=== PATIENT | male | born 1950 | race Caucasian/White ===

== ENCOUNTER 2018-02-08 08:10 | Emergency (ER) | payer MEDICARE ==
[2018-02-08 08:25] VITALS: BP 147/99
--- NOTE | 2018-02-08 08:43 | UC ---
Lower Extremity/Ankle HPI - HPI Summary HPI Summary: PATIENT PRESENTS WITH 3 DAYS OF BRUISING AND A PALPABLE MASS IN HIS RIGHT CALF. NOTICED IT WHEN HE WAS STEPPING OUT OF THE SHOWER. HE DENIES ANY TRAUMA TO THE AREA THAT HE CAN REMEMBER. NO PAIN WITH AMBULATION OR WEIGHTBEARING. ONLY TENDER WITH PALPATION. NO PERSONAL OR FAMILY HISTORY OF BLEEDING OR CLOTTING DISORDERS. NO HISTORY OF DVT. HE DENIES SHORTNESS OF BREATH, CHEST PAIN, NAUSEA. - History of Current Complaint Chief Complaint: UCLowerExtremity Stated Complaint: RIGHT LEG SKIN COMPLAINT Time Seen by Provider: 02/08/18 08:26 Hx Obtained From: Patient Onset/Duration: Lasting Days, Still Present Severity Initially: Moderate Severity Currently: Moderate Pain Intensity: 0 Pain Scale Used: 0-10 Numeric Aggravating Factor(s): Other - TOUCH Alleviating Factor(s): Nothing Able to Bear Weight: Yes - Allergies/Home Medications Allergies/Adverse Reactions: Allergies Allergy/AdvReac Type Severity Reaction Status Date / Time atorvastatin [From Lipitor] Allergy Joint Pain Verified 02/08/18 08:21 PMH/Surg Hx/FS Hx/Imm Hx GI/ History: Gastroesophageal Reflux - Surgical History Surgical History: Yes Surgery Procedure, Year, and Place: HERNIA REPAIR, POLOP REMOVED FROM [facility] - Family History Known Family History: Positive: Other - AVM (daughter) Negative: Hypertension, Blood Disorder - Social History Alcohol Use: Rare Substance Use Type: None Smoking Status (MU): Never Smoked Tobacco Review of Systems Constitutional: Negative Skin: Bruising Respiratory: Negative Cardiovascular: Negative Gastrointestinal: Negative Musculoskeletal: Calf Tenderness - tender nodule right calf All Other Systems Reviewed And Are Negative: Yes Physical Exam Triage Information Reviewed: Yes Appearance: No Pain Distress, Well-Nourished Vital Signs: Initial Vital Signs Temp 98.3 F 02/08/18 08:22 Pulse 54 02/08/18 08:22 Resp 15 02/08/18 08:22 BP 147/99 02/08/18 08:22 Pulse Ox 97 02/08/18 08:22 Vital Signs Reviewed: Yes Eyes: Positive: Conjunctiva Clear ENT: Positive: Hearing grossly normal Neck: Positive: Supple Respiratory: Positive: No respiratory distress, No accessory muscle use Cardiovascular: Positive: Pulses Normal Abdomen Description: Positive: Soft Musculoskeletal: Positive: ROM Intact, No Edema Neurological: Positive: Alert Psychological: Positive: Age Appropriate Behavior Skin: Positive: Other - BRUISING RIGHT CALF OVERLYING TENDER PALPABLE NODULE. NEG HOMANS. Diagnostics - Radiology RLE US Xray Interpretation: Positive (See Comments) - Small amount of fluid within the medial calf. No DVT Radiology Interpretation Completed By: Radiologist Lower Extremity Course/Dx - Differential Dx/Diagnosis Provider Diagnoses: FLUID CYST RIGHT CALF Discharge - Sign-Out/Discharge Documenting (check all that apply): Discharge/Admit/Transfer - Discharge Plan Condition: Stable Disposition: HOME Patient Education Materials: Soft Tissue Mass (ED) Referrals: Addison Pink MD [Primary Care Provider] - (KEEP YOUR APPT NEXT WEEK) Additional Instructions: ULTRASOUND TODAY SHOWED A SMALL FLUID COLLECTION IN YOUR RIGHT CALF. NO DVT. KEEP YOUR FOLLOW-UP APPOINTMENT WITH YOUR PCP NEXT WEEK. IN THE MEANTIME NO ACUTE INTERVENTION INDICATED. THE BRUISING AND FLUID COLLECTION WILL LIKELY RESOLVE ON THEIR OWN. GO TO ER WITHOUT FAIL IF YOU DEVELOP WORSENING PAIN, SHORTNESS OF BREATH, CHEST PAIN, NAUSEA, SWEATS, DIZZINESS OR ANY OTHER CONCERNING SYMPTOMS. - Billing Disposition and Condition Condition: STABLE Disposition: Home
--- NOTE | 2018-02-08 09:14 | RAD ---
INDICATION: Calf tenderness, palpable nodule. COMPARISON: There are no prior studies available for comparison. TECHNIQUE: Multiple real-time, color flow and Doppler tracings of the right lower extremity were obtained. FINDINGS: The common femoral, femoral, profunda femoral and popliteal veins all demonstrate normal compressibility, augmentation with compression and phasic response with respiration. The posterior tibial and peroneal veins demonstrate normal compressibility and augmentation with compression. There is a small amount of fluid within the medial calf in the region of the patient's bruise. IMPRESSION: NO EVIDENCE FOR DEEP VENOUS THROMBOSIS.
== END 2018-02-08 09:34 | disposition home or self-care (01) ==
LOC: UCCORT 08:10
DX: L72.8 Other follicular cysts of the skin and subcutaneous tissue (principal); Z12.5 Encounter for screening for malignant neoplasm of prostate; Z13.220 Encounter for screening for lipoid disorders
CPT/HCPCS: 99211; G0463

== ENCOUNTER 2019-03-24 09:28 | Emergency (ER) | payer MEDICARE ==
--- OUTSIDE RECORDS SUMMARY | 2019-03-24 09:41 | XMS REPORT | Continuity of Care Document ---
:1950 External Reference #:[id number] Author Name dAdison Pink M.D. Address [address] [facility] [address] [place] [address] Care Team Providers Name Role Phone HCP/LW on file Primary Care Physician Unavailable Payers Date Identification Numbers Payment Provider Subscriber Effective: Policy Number: [id number] [facility]a Robison 2017 PayID: [id number] [address] [place] [address] Effective: 2017 Policy Number: [facility] Dariana Robison [id number] PayID: [id number] [address] [place] [address] Problems Active Problems Provider Date Esophagitis Addison Pink M.D. Onset: 12/28/2010 Primary cardiomyopathy Addison Pink M.D. Onset: 12/28/2010 Resolved Problems Benign essential hypertension Addison Pink M.D. Onset: 12/28/2010 Resolved: 10/17/2013 Family History Date Family Member(s) Observation Comments General Cancer Bone sister General Stroke sister at age 61; in setting of cancer/myeloma General Sister 01/15/17 at age 62 of multiple myeloma : Mother due to had arterial perforation (11/2018) (age Complication of procedure during the procedure 89 Years) for Watchman Device First Son Cal Robsion Born 04/10/78 Onset: (age 23 First Daughter Stroke from [place] in [place]; had Years) recurrent CVA from this lesion leaving her w/ hemiparesis in 2010 First Daughter Chayo Robison Born 03/10/80 - Stroke - (age 23 years) from an Avm in [place]. Number of Siblings 1 brother and 5 sisters Social History Type Date Description Comments Sex Unknown Education Highest Level Of Education Completed Is College Level Smoke-Free Home is smoke-free Work Status 12/03/2013 Retired from position as carpenter maintenance Hand Dominance 02/24/2019 Right-handed Tobacco Use Reviewed: Never Smoked Cigarettes 02/20/18 Smoking Status Reviewed: Never Smoked Cigarettes 02/20/18 ETOH Use Rarely consumes alcohol Sun Exposure minimum amount of sun exposure Sun Exposure Uses sunscreen Seat Belt/Car Seat always uses seat belt Currently Active Patient is currently sexually active Age 1st [place] 19 Years Old Additional Info Sexual Partners The patient has had over 5 sexual partners. Allergies, Adverse Reactions, Alerts Active Allergies Reaction Severity Comments Date Lipitor Myositis 09/10/2005 Medications Active Medications SIG Qnty Indications Ordering Provider Date Amlodipine Besylate take 1 tablet 90tabs I73.00 Addison Pink, 2018 5mg daily for pain M.D. Tablets in feet (Raynaud's syndrome) M79.672 I73.00 B Complex 1 daily (for leg R25.2 Addison Pink, 02/20/2018 Capsules cramps); stop after M.D. 2 months if not helpful (for leg cramps) Omeprazole take 1 capsule once 90caps K20.8 Addison Pink, 12/18/2011 20mg Capsules daily for acid M.D. DR reflux History Medications Amlodipine take 1 tablet 90tabs M79.671 Addison Pink, 12/17/2018 - Besylate daily for pain in M.D. 02/23/2019 5mg feet (Raynaud's Tablets syndrome) M79.672 I73.00 Shingrix administer 2 doses 2units Z23 Joesph, 02/20/2018 - 50mcg as directed, per Mike Jaime 08/19/2018 Suspension Rec cdc guidelines Aspirin Adult Low 1 by mouth every Unknown 02/18/2017 - Dose day 02/24/2019 81mg Tablets Doxycycline 1 tab by mouth 28tabs S20.461A Sahra Yeager, 06/22/2016 - Monohydrate twice a day x14 PA 07/06/2016 100mg days Tablets Multivitamin Adult 1 by mouth every Unknown 06/21/2016 - day 02/18/2017 Tablets Tennis Elbow Brace use as directed 1units 726.32 Joesph, 10/17/2013 - Mike Jaime 11/29/2014 For R Arm Azithromycin Unknown 10/11/2011 - 250mg 10/16/2011 Tablets Omeprazole 1 po qd for acid 90caps 530.19 Unknown 09/29/2010 - 20mg reflux 10/16/[address] Tellez OTC 1 po once daily 786.50 Unknown 02/17/2010 - 20mg 09/29/[address] Fu 1 po qd 272.0 Unknown 09/29/2009 - 1000mg 09/29/2010 Lisinopril 1 po qd for high 401.1 Mauser, 09/28/2009 - 20mg blood pressure MD William 09/30/2010 Tablets Simvastatin 1 po qd for high 272.8 Mauser, 09/28/2009 - 5mg cholesterol MD William 09/30/2010 Tablets Zetia 1 PO qd 272.0 Unknown 01/10/2006 - 10mg Tablets 10/12/2008 Niaspan 1 PO qd 272.0 Unknown 01/10/2006 - 500mg 09/29/2009 Tablets Lipitor 1 po qd at supper 0tabs Unknown 10/31/2004 - 20mg for cholesterol 09/10/2005 Tablets Asp 1 tab qd to 0caps Unknown 10/31/2004 - 81mg Capsules prevent a stroke 12/07/2015 Multivitamin (OTC) 1 po qd Unknown 10/31/2004 - 12/07/2015 HCTZ 1 po qd for high 90caps 401.1 Joesph, 10/31/2004 - 12.5mg blood pressure Mike Jaime 10/16/2011 Capsules Medrol Dose [place] use as directed 1Pack 476.0 Joesph, 07/27/2004 - 4mg Mike Jaime 08/10/2004 Tablets Altace 1 po qd for blood 90caps 401.1 Joesph, 04/21/2004 - 10mg pressure Mike Jaime 09/29/2009 Capsules Altace 1 po qd 0caps Unknown - 5mg Capsules 04/21/2004 Medications Administered in Office Medication SIG Qnty Indications Ordering Provider Date H1N1 Swine Flu Vaccine Addison Pink M.D. 09/29/2009 Injection Immunizations CPT Code Status Date Vaccine Lot # [id number] Given 02/24/2019 Pneumococcal Immunization [id number] 47775 Given 06/18/2018 Influenza Vaccine, Inactivated, Subunit, Adjuvanted, For [place] [facility] [place] [place] [address] Given 12/03/2017 Prevnar 13 [id number] U-Flu Given 05/24/2017 Influenza,Unspecified 47309 Given 06/22/2016 Td Immunization [id number] 57102 Given 05/10/2016 Flu, Split Virus 3Yrs 18529 Given 06/23/2014 Flu, Split Virus 3Yrs 71684 Given 05/16/2013 Flu, Split Virus 3Yrs [id number] 12899 Given 05/02/2012 Flu, Split Virus 3Yrs 76146 Given 02/26/2012 Zostavax [id number] 14197 Given 01/30/2006 Adacel or Boostrix, TDaP [id number] 30009 Given 05/11/2004 Flu, Split Virus 3Yrs 73979 Given 05/07/2003 Flu, Split Virus 3Yrs Vital Signs Date Vital Result Comment 02/24/2019 2:40pm BP Systolic 128 mmHg BP Diastolic 80 mmHg Heart Rate 56 /min reg Respiratory Rate 12 /min not laboured Weight 224.00 lb 11/04/2018 4:58pm BP Systolic 130 mmHg BP Diastolic 80 mmHg Height 71.50 inches 5'11.50" w/shoes Weight 229.00 lb w/shoes BMI (Body Mass Index) 31.5 kg/m2 02/20/2018 2:00pm BP Systolic 120 mmHg BP Diastolic 82 mmHg Height 70 inches 5'10" Weight 226.00 lb BMI (Body Mass Index) 32.4 kg/m2 12/03/2017 1:17pm BP Systolic 136 mmHg BP Diastolic 86 mmHg Heart Rate 60 /min Height 71.50 inches 5'11.50" Weight 232.00 lb BMI (Body Mass Index) 31.9 kg/m2 02/19/2017 2:49pm BP Systolic 124 mmHg BP Diastolic 70 mmHg Heart Rate 54 /min reg Respiratory Rate 12 /min not laboured Height 71 inches 5'11" Weight 235.00 lb BMI (Body Mass Index) 32.8 kg/m2 06/22/2016 4:43pm BP Systolic 134 mmHg BP Diastolic 86 mmHg Body Temperature 97.9 F Height 71 inches 5'11" w/shoes Weight 228.00 lb w/shoes BMI (Body Mass Index) 31.8 kg/m2 12/08/2015 2:46pm BP Systolic 122 mmHg BP Diastolic 82 mmHg Heart Rate 54 /min reg Respiratory Rate 12 /min not laboured Weight 222.00 lb 11/30/2014 2:32pm BP Systolic 140 mmHg BP Diastolic 86 mmHg Heart Rate 56 /min reg Respiratory Rate 12 /min not laboured Height 70 inches 5'10" Weight 227.00 lb BMI (Body Mass Index) 32.6 kg/m2 10/17/2013 4:04pm BP Systolic 110 mmHg BP Diastolic 78 mmHg Heart Rate 58 /min reg Respiratory Rate 12 /min not laboured Height 70.25 inches 5'10.25" Weight 222.00 lb BMI (Body Mass Index) 31.6 kg/m2 10/16/2012 3:25pm BP Systolic 120 mmHg BP Diastolic 82 mmHg Heart Rate 58 /min reg Respiratory Rate 12 /min not laboured Height 71 inches 5'11" Weight 215.00 lb BMI (Body Mass Index) 30.0 kg/m2 05/03/2012 10:14am BP Systolic 128 mmHg BP Diastolic 80 mmHg Height 71 inches 5'11" Weight 208.00 lb w/shoes BMI (Body Mass Index) 29.0 kg/m2 10/16/2011 3:22pm BP Systolic 120 mmHg BP Diastolic 70 mmHg Heart Rate 54 /min reg Respiratory Rate 12 /min not laboured Height 71 inches 5'11" Weight 213.00 lb BMI (Body Mass Index) 29.7 kg/m2 12/28/2010 4:44pm BP Systolic 112 mmHg BP Diastolic 80 mmHg Weight 218.00 lb Last Menstrual Period 0 09/30/2010 3:49pm BP Systolic 112 mmHg BP Diastolic 76 mmHg Height 71.50 inches 5'11.50" Weight 219.00 lb BMI (Body Mass Index) 30.1 kg/m2 02/18/2010 5:06pm BP Systolic 112 mmHg BP Diastolic 66 mmHg Weight 221.00 lb 09/29/2009 2:06pm BP Systolic 112 mmHg BP Diastolic 70 mmHg Height 70.5 inches 5'10.50" Weight 213.00 lb w/out shoes BMI (Body Mass Index) 30.1 kg/m2 01/23/2007 11:50am BP Systolic 130 mmHg BP Diastolic 76 mmHg Body Temperature 98.0 F Height 71 inches 5'11" Weight 217.00 lb with steel boots BMI (Body Mass Index) 30.3 kg/m2 01/30/2006 9:00am BP Systolic 128 mmHg BP Diastolic 80 mmHg Height 71 inches 5'11" Weight 219.00 lb BMI (Body Mass Index) 30.5 kg/m2 10/31/2004 1:54pm BP Systolic 120 mmHg BP Diastolic 84 mmHg BP Systolic Recheck 132 mmHg R arm sitting BP Diastolic Recheck 90 mmHg R arm sitting Heart Rate 56 /min reg Height 71 inches 5'11" Weight 216.00 lb BMI (Body Mass Index) 30.1 kg/m2 07/27/2004 1:04pm BP Systolic 130 mmHg BP Diastolic 80 mmHg Body Temperature 98.1 F Height 71 inches 5'11" Weight 221.00 lb BMI (Body Mass Index) 30.8 kg/m2 11/02/2003 1:52pm BP Systolic 130 mmHg R Arm BP Diastolic 90 mmHg R Arm BP Systolic Recheck 146 mmHg R arm sitting BP Diastolic Recheck 90 mmHg R arm sitting Heart Rate 52 /min reg Respiratory Rate 16 /min Height 71 inches 5'11" Weight 220.00 lb BMI (Body Mass Index) 30.7 kg/m2 Results Test Date Facility Test Result H/L Range Note Laboratory test 02/14/2019 [facility] PSA Screening 1.693 ng/ mL N 0-4.000 1 finding [address] [place] [address] [phone] Laboratory test 02/14/2019 [facility] Vitamin B12 423 pg/mL N 180-914 2 finding [address] [place], [place] [id number] [phone] Magnesium 2.0 mg/dL N 1.9-2.7 Lipid Profile 02/14/2019 [facility] Triglycerides 57 mg/dL 3 (Trig/Chol/HDL) [address] [place] [address] [phone] Cholesterol 179 mg/dL 4 HDL Cholesterol 50.9 mg/dL 5 LDL Cholesterol 117 mg/dL 6 Laboratory test 06/04/2018 [facility] Surgical Pathology SEE RESULT 7, 8 finding [phone] BELOW Laboratory test 06/04/2018 [facility] Clotest SEE RESULT 9, 10 finding [phone] BELOW Laboratory test 02/08/2018 [facility] PSA Screening 2.293 ng/mL N 0- 4.0 11 finding [phone] Lipid Profile 02/08/2018 [facility] Triglycerides 88 mg/dL 12 (Trig/Chol/HDL) [phone] Cholesterol 187 mg/dL 13 HDL Cholesterol 45.2 mg/dL 14 LDL Cholesterol 124 mg/dL 15 Laboratory test 01/03/2017 [facility] PSA Screening 1.496 ng/mL N 0- 4.000 16 finding [phone] CBC Auto Diff 01/13/2016 [facility] White Blood 5.0 10^3/uL N 3.5- 10.8 [phone] Count Red Blood Count 5.23 10^6/uL N 4.0-5.4 Hemoglobin 15.5 g/dL N 14.0-18.0 Hematocrit 46 % N 42-52 Mean Corpuscular Volume 89 fL N 80-94 Mean Corpuscular Hemoglobin 30 pg N 27-31 Mean Corpuscular HGB Conc 33 g/dL N 31-36 Red Cell Distribution Width 14 % N 10.5-15 Platelet Count 255 10^3/uL N 150-450 Mean Platelet Volume 7 um3 Low 7.4-10.4 Abs Neutrophils 3.2 10^3/uL N 1.5-7.7 Abs Lymphocytes 1.2 10^3/uL N 1.0-4.8 Abs Monocytes 0.4 10^3/uL N 0-0.8 Abs Eosinophils 0.1 10^3/uL N 0-0.6 Abs Basophils 0 10^3/uL N 0-0.2 Abs Nucleated RBC 0 10^3/uL N Granulocyte % 64.7 % N 38-83 Lymphocyte % 24.4 % Low 25-47 Monocyte % 7.7 % N 1-9 Eosinophil % 2.4 % N 0-6 Basophil % 0.8 % N 0-2 Nucleated Red Blood Cells % 0.1 N Inr/Protime 01/13/2016 [facility] Inr 0.97 N 0.89-1.11 [phone] Laboratory test 01/13/2016 [facility] Partial 33.4 seconds N 26.0- 36.3 finding [phone] Thrombo Time PTT Comp Metabolic 01/13/2016 [facility] Sodium 138 mmol/L N 133-145 Panel [phone] Potassium 4.1 mmol/L N 3.5-5.0 Chloride 107 mmol/L N 101-111 Co2 Carbon Dioxide 26 mmol/L N 22-32 Anion Gap 5 mmol/L N 2-11 Glucose 87 mg/dL N 70-100 Blood Urea Nitrogen 16 mg/dL N 6-24 Creatinine 1.09 mg/dL N 0.67-1.17 BUN/Creatinine Ratio 14.7 N 8-20 Calcium 9.3 mg/dL N 8.6-10.3 Total Protein 7.0 g/dL N 6.4-8.9 Albumin 4.2 g/dL N 3.2-5.2 Globulin 2.8 g/dL N 2-4 Albumin/Globulin Ratio 1.5 N 1-3 Total Bilirubin 0.40 mg/dL N 0.2-1.0 Alkaline Phosphatase 62 U/L N 34-104 Alt 18 U/L N 7-52 Ast 21 U/L N 13-39 Egfr Non- 68.3 N >60 Egfr 87.9 N >60 17 Lipid Profile (Trig/Chol/HDL) 12/03/2015 [facility] Triglycerides 62 mg /dL N 18 [phone] Cholesterol 192 mg/dL N 19 HDL Cholesterol 46.5 mg/dL N 20 LDL Cholesterol 133 mg/dL N 21 Laboratory test finding 12/03/2015 [facility] Glucose 97 mg/dL N 70- 100 22 [phone] PSA Screening 1.806 ng/mL N 0-4.000 23 Laboratory test 01/05/2015 [facility] Troponin-I (TnI) 0.00 ng/mL N < 0.03 24 finding [phone] Laboratory test 01/05/2015 [facility] B Type Natriuretic 16 pg/mL N 25 finding [phone] Peptide CKMB 01/05/2015 [facility] CKMB ng/mL 4.3 ng/mL N 0.6-6.3 [phone] Laboratory test 01/05/2015 [facility] Creatine Kinase 118 U/L N 10- 223 finding [phone] Troponin-I (TnI) 0.00 ng/mL N <0.03 26 Comp Metabolic Panel 01/05/2015 [facility] Sodium 139 mmol/L N 133- 145 [phone] Potassium 4.1 mmol/L N 3.5-5.0 Chloride 106 mmol/L N 101-111 Co2 Carbon Dioxide 29 mmol/L N 22-32 Anion Gap 4 mmol/L N 2-11 Glucose 93 mg/dL N 70-100 Blood Urea Nitrogen 15 mg/dL N 6-24 Creatinine 1.01 mg/dL N 0.67-1.17 BUN/Creatinine Ratio 14.9 N 8-20 Calcium 9.1 mg/dL N 8.6-10.3 Total Protein 7.0 g/dL N 6.4-8.9 Albumin 4.2 g/dL N 3.2-5.2 Globulin 2.8 g/dL N 2-4 Albumin/Globulin Ratio 1.5 N 1-3 Total Bilirubin 0.60 mg/dL N 0.2-1.0 Alkaline Phosphatase 58 U/L N 34-104 Alt 19 U/L N 7-52 Ast 19 U/L N 13-39 Egfr Non- 74.9 N >60 Egfr 96.3 N >60 27 Laboratory test 01/05/2015 [facility] Partial 35.1 seconds N 26.0- 36.3 finding [phone] Thrombo Time PTT Inr/Protime 01/05/2015 [facility] Inr 0.95 N 0.78-1.07 [phone] CBC Auto Diff 01/05/2015 [facility] White Blood 4.9 10^3/uL N 4.8- 10.8 [phone] Count Red Blood Count 4.96 10^6/uL N 4.0-5.4 Hemoglobin 15.3 g/dL N 14.0-18.0 Hematocrit 44 % N 42-52 Mean Corpuscular Volume 88 fL N 80-94 Mean Corpuscular Hemoglobin 31 pg N 27-31 Mean Corpuscular HGB Conc 35 g/dL N 31-36 Red Cell Distribution Width 14 % N 10.5-15 Platelet Count 249 10^3/uL N 150-450 Mean Platelet Volume 7 um3 Low 7.4-10.4 Abs Neutrophils 3.1 10^3/uL N 1.5-7.7 Abs Lymphocytes 1.1 10^3/uL N 1.0-4.8 Abs Monocytes 0.5 10^3/uL N 0-0.8 Abs Eosinophils 0.1 10^3/uL N 0-0.6 Abs Basophils 0 10^3/uL N 0-0.2 Abs Nucleated RBC 0 10^3/uL N Granulocyte % 63.5 % N 38-83 Lymphocyte % 23.2 % Low 25-47 Monocyte % 10.2 % High 1-9 Eosinophil % 2.4 % N 0-6 Basophil % 0.7 % N 0-2 Nucleated Red Blood Cells % 0 N Laboratory test 11/23/2014 [facility] PSA Screening 1.713 ng/mL N 0- 4.000 28 finding [phone] Urine Micro Inhouse 10/17/2013 In House Ua WBC - Ua RBC - Ua Casts - Ua Epi - Ua Other sediment Ua Glucose - Ua Bilirubin - Ua Ketones - Ua Specific [place] 1.020 Ua Blood - Ua PH 6.0 Ua Protein tr Ua Urobilinogen - Ua Nitrite - Ua Leukocytes - Laboratory test 10/09/2013 [facility] PSA Screening 1.409 ng/mL 0- 4.000 29 finding [phone] Lipid Profile 10/09/2013 [facility] Triglycerides 74 mg/dL 30 (Trig/Chol/HDL) [phone] Cholesterol 172 mg/dL 31 HDL Cholesterol 50.6 mg/dL 32 LDL Cholesterol 107 mg/dL 33 Laboratory test 10/07/2012 [facility] PSA Screening 1.9 ng/mL 0-4.0 34 finding [phone] CBC Auto Diff 04/29/2012 [facility] White Blood Count 5.1 CUMM 4.8- 10.8 [phone] Red Cell Count 4.85 CUMM 4.6-6.2 Hemoglobin 15.1 g/dL 14.0-18.0 Hematocrit 44 % 42-52 Mean Corpuscular Volume 90 um3 80-94 Mean Corpuscular Hemoglob 31 pg 27-31 Mean Corpuscular HGB Cone 35 g/dL 32-36 Redcell Distribution WDTH 14 % 10.5-15 Platelet Count 251 CUMM 150-450 Mean Platelet Volume 7.2 um3 Low 7.4-10.4 Gran % 71.7 % 38-83 Lymph % 18.3 % Low 20-45 Mononuclear % 8.1 % 1-9 Eosinophil % 0.8 % 0-6 Basophil % 1.1 % 0-2 Abs Lymphs 0.9 Low 1.0-4.8 Abs Mononuclear 0.4 0-0.8 Absolute Neutrophil Count 3.7 1.5-7.7 Abs Eosinophils 0 0-0.6 Abs Basophils 0.1 0-0.2 Comp Metabolic Panel 04/29/2012 [facility] Sodium 139 mmol/L 135- 145 [phone] Potassium 4.1 mmol/L 3.5-5.0 Chloride 105 mmol/L 101-111 Co2 (Carbon Dioxide) 27.0 mmol/L 22-32 Anion Gap 7.0 mmol/L 2-11 35 Glucose 108 mg/dL High 70-100 BUN 13 mg/dL 6-24 Creatinine 1.0 mg/dL 0.50-1.40 One Over Creatinine 1.00 BUN/Creatinine Ratio 13.0 8-20 Calcium 9.5 mg/dL 8.1-9.9 Total Protein 6.7 GM/DL 6.2-8.1 Albumin 4.4 GM/DL 3.2-5.2 Globulin 2.3 GM/DL 2-4 Albumin/Globulin Ratio 1.9 1-3 Bilirubin Total 1.1 mg/dL 0.4-1.5 36 Alkaline Phosphatase 50 U/L 39-117 Alt (SGPT) 18 U/L 17-63 Ast (Sgot) 23 U/L 12-42 eGFR Non- 76.2 > 60 eGFR 98.0 > 60 37 Laboratory test finding 04/29/2012 [facility] Troponin-I 0 NG/ML 0- 0.06 38 [phone] CPK (Creatine Kinase) 127 U/L 0-200 CKMB 04/29/2012 [facility] CKMB In NG/ML 3.0 NG/ML 0.3-4.0 [phone] % CKMB 2 %MB 0-9 39 Laboratory test finding 10/16/2011 In House Hemoglobin A1c 5.7 Laboratory test finding 10/11/2011 [facility] Alt (SGPT) 40 U/L 17- 63 [phone] Lipid Profile 10/11/2011 [facility] Triglyceride 71 mg/dL 40-200 (Trig/Chol/HDL) [phone] Cholesterol 164 mg/dL Less Than 200 40 High Density Lipoprotein 31 mg/dL Low 40-60 41 Cholesterol/HDL Ratio 5.29 AVERAGE High 1-4.97 Low Density Lipoprotein 119 mg/dL High Less Than 100 42 Basic Metabolic Panel 10/11/2011 [facility] Sodium 140 mmol/L 135- 145 [phone] Potassium 4.5 mmol/L 3.5-5.0 Chloride 100 mmol/L Low 101-111 Co2 (Carbon Dioxide) 33.0 mmol/L High 22-32 Anion Gap 7.0 mmol/L 2-11 43 Glucose 103 mg/dL High 70-100 BUN 9 mg/dL 6-24 Creatinine 0.9 mg/dL 0.50-1.40 One Over Creatinine 1.11 BUN/Creatinine Ratio 10.0 8-20 Calcium 9.3 mg/dL 8.1-9.9 eGFR Non- 86.4 > 60 eGFR 111.1 > 60 44 Laboratory test finding 10/11/2011 [facility] PSA 2.13 NG/ML 0-4 45 [phone] Laboratory test finding 12/20/2010 [facility] Alt (SGPT) 23 U/L 17- 63 [phone] Lipid Profile 12/20/2010 [facility] Triglyceride 111 mg/dL 40-200 (Trig/Chol/HDL) [phone] Cholesterol 197 mg/dL Less Than 200 46 High Density Lipoprotein 50 mg/dL 40-60 47 Cholesterol/HDL Ratio 3.94 AVERAGE 1-4.97 Low Density Lipoprotein 125 mg/dL High Less Than 100 48 Basic Metabolic Panel 12/20/2010 [facility] Sodium 140 mmol/L 135- 145 [phone] Potassium 3.9 mmol/L 3.5-5.0 Chloride 105 mmol/L 101-111 Co2 (Carbon Dioxide) 30.0 mmol/L 22-32 Anion Gap 5.0 mmol/L 2-11 49 Glucose 85 mg/dL 70-100 BUN 14 mg/dL 6-24 Creatinine 0.90 mg/dL 0.50-1.40 One Over Creatinine 1.10 BUN/Creatinine Ratio 15.6 8-20 Calcium 9.1 mg/dL 8.1-9.9 eGFR Non- 86.7 > 60 eGFR 111.5 > 60 50 Laboratory test 12/20/2010 [facility] PSA Screening 1.36 NG/ML 0-4 51 finding [phone] Laboratory test 03/09/2010 [facility] Clotest NEGATIVE finding [phone] CBC With 02/09/2010 [facility] White Blood 6.9 CUMM 4.8-10.8 Electronic Diff [phone] Count Red Cell Count 5.05 CUMM 4.6-6.2 Hemoglobin 14.5 g/dL 14.0-18.0 Hematocrit 46 % 42-52 Mean Corpuscular Volume 91 um3 80-94 Mean Corpuscular Hemoglob 29 pg 27-31 Mean Corpuscular HGB Cone 32 g/dL 32-36 Redcell Distribution WDTH 13 % 10.5-15 Platelet Count 299 CUMM 150-450 Mean Platelet Volume 6.5 um3 Low 7.4-10.4 Gran % 64.1 % 38-83 Lymph % 23.8 % Low 25-47 Mononuclear % 8.8 % 1-9 Eosinophil % 2.8 % 0-6 Basophil % 0.5 % 0-2 Abs Lymphs 1.6 1.0-4.8 Abs Mononuclear 0.6 0-0.8 Absolute Neutrophil Count 4.4 1.5-7.7 Abs Eosinophils 0.2 0-0.6 Abs Basophils 0 0-0.2 Comp Metabolic Panel 02/09/2010 [facility] Sodium 136 mmol/L 135- 145 [phone] Potassium 4.0 mmol/L 3.5-5.0 Chloride 101 mmol/L 101-111 Co2 (Carbon Dioxide) 28.0 mmol/L 22-32 Anion Gap 7.0 mmol/L 2-11 52 Glucose 105 mg/dL High 70-100 53 BUN 20 mg/dL 6-24 Creatinine 1.00 mg/dL 0.50-1.40 One Over Creatinine 1.00 BUN/Creatinine Ratio 20.0 8-20 Calcium 8.7 mg/dL 8.1-9.9 54 Total Protein 6.3 GM/DL 6.2-8.1 Albumin 4.1 GM/DL 3.6-5.4 Globulin 2.2 GM/DL 2-4 Albumin/Globulin Ratio 1.9 1-3 Bilirubin Total 1.0 mg/dL 0.4-1.5 55 Alkaline Phosphatase 57 U/L 39-117 Alt (SGPT) 18 U/L 17-63 Ast (Sgot) 22 U/L 12-42 eGFR Non- 81.9 > 60 eGFR 99.0 > 60 56 Laboratory test 02/09/2010 [facility] Troponin-I (TnI) 0 NG/ML 57 finding [phone] Laboratory test 09/29/2009 [facility] PSA Screening 1.67 NG/ML 0-4 58 finding [phone] Laboratory test 06/18/2009 [facility] CPK (Creatine 199 U/L 0-200 finding [phone] Kinase) Comp Metabolic 06/10/2009 [facility] Sodium 140 mmol/L 135-145 Panel [phone] Potassium 4.2 mmol/L 3.5-5.0 Chloride 104 mmol/L 101-111 Co2 (Carbon Dioxide) 30.0 mmol/L 22-32 Anion Gap 6.0 mmol/L 2-11 59 Glucose 81 mg/dL 70-100 60 BUN 10 mg/dL 6-24 Creatinine 1.10 mg/dL 0.50-1.40 One Over Creatinine 0.90 BUN/Creatinine Ratio 9.1 8-20 Calcium 8.7 mg/dL 8.1-9.9 61 Total Protein 5.9 GM/DL Low 6.2-8.1 Albumin 3.8 GM/DL 3.6-5.4 Globulin 2.1 GM/DL 2-4 Albumin/Globulin Ratio 1.8 1-3 Bilirubin Total 1.2 mg/dL 0.4-1.5 62 Alkaline Phosphatase 42 U/L 39-117 Alt (SGPT) 26 U/L 17-63 Ast (Sgot) 33 U/L 12-42 eGFR Non- 73.3 > 60 eGFR 88.7 > 60 63 Laboratory test 06/10/2009 [facility] CPK (Creatine 498 U/L High 0- 200 finding [phone] Kinase) Lipid Profile 06/10/2009 [facility] Triglyceride 36 mg/dL Low 40-200 (Trig/Chol/HDL) [phone] Cholesterol 149 mg/dL Less Than 200 64 High Density Lipoprotein 59 mg/dL 40-60 65 Cholesterol/HDL Ratio 2.53 AVERAGE 1-4.97 Low Density Lipoprotein 83 mg/dL Less Than 100 66 Laboratory test 12/15/2008 [facility] CPK (Creatine 154 U/L 0-200 finding [phone] Kinase) Lipid Profile 12/15/2008 [facility] Triglyceride 51 mg/dL 40-200 (Trig/Chol/HDL) [phone] Cholesterol 159 mg/dL Less Than 200 67 High Density Lipoprotein 49 mg/dL 40-60 68 Cholesterol/HDL Ratio 3.24 AVERAGE 1-4.97 Low Density Lipoprotein 100 mg/dL Less Than 100 69 Comp Metabolic Panel 12/15/2008 [facility] Sodium 139 mmol/L 135- 145 [phone] Potassium 4.4 mmol/L 3.5-5.0 Chloride 103 mmol/L 101-111 Co2 (Carbon Dioxide) 32.0 mmol/L 22-32 Anion Gap 4.0 mmol/L 2-11 70 Glucose 88 mg/dL 70-100 71 BUN 14 mg/dL 6-24 Creatinine 1.00 mg/dL 0.50-1.40 One Over Creatinine 1.00 BUN/Creatinine Ratio 14.0 8-20 Calcium 9.5 mg/dL 8.1-9.9 72 Total Protein 6.0 GM/DL Low 6.2-8.1 Albumin 4.0 GM/DL 3.6-5.4 Globulin 2.0 GM/DL 2-4 Albumin/Globulin Ratio 2.0 1-3 Bilirubin Total 1.0 mg/dL 0.4-1.5 Alkaline Phosphatase 50 U/L 39-117 Alt (SGPT) 15 U/L Low 17-63 Ast (Sgot) 20 U/L 12-42 Laboratory test 10/01/2007 [facility] CPK (Creatine 124 U/L 0-200 73 finding [phone] Kinase) Comp Metabolic Panel 10/01/2007 [facility] One Over Creatinine 0.90 [phone] Anion Gap 5.0 mmol/L 2-11 74 Albumin/Globulin Ratio 1.9 1-3 Albumin 4.2 GM/DL 3.6-5.4 Alkaline Phosphatase 52 U/L 39-117 Alt (SGPT) 21 U/L 17-63 Ast (Sgot) 22 U/L 12-42 BUN 12 mg/dL 6-24 Calcium 9.9 mg/dL 8.7-10.2 Chloride 103 mmol/L 101-111 Co2 (Carbon Dioxide) 34.0 mmol/L High 22-32 Globulin 2.2 GM/DL 2-4 Glucose 93 mg/dL 70-105 Potassium 4.6 mmol/L 3.5-5.0 Sodium 142 mmol/L 135-145 Bilirubin Total 0.5 mg/dL 0.4-1.5 Total Protein 6.4 GM/DL 6.2-8.1 BUN/Creatinine Ratio 10.9 8-20 Creatinine 1.1 mg/dL 0.5-1.4 Lipid Profile 10/01/2007 [facility] Cholesterol/HDL 3.42 1-4.97 (Trig/Chol/HDL) [phone] Ratio AVERAGE Cholesterol 188 mg/dL Less Than 200 75 Triglyceride 43 mg/dL 40-200 High Density Lipoprotein 55 mg/dL 40-60 Low Density Lipoprotein 124 mg/dL High Less Than 100 76 Basic Metabolic Panel 11/09/2004 [facility] Anion Gap 8.0 mmol/L 2- 11 77 [phone] BUN 14 mg/dL 6-24 Calcium 9.6 mg/dL 8.7-10.2 Chloride 100 mmol/L Low 101-111 Co2 (Carbon Dioxide) 31.0 mmol/L 22-32 Creatinine 1.1 mg/dL 0.5-1.4 Glucose 89 mg/dL 70-105 Potassium 4.7 mmol/L 3.5-5.0 Sodium 139 mmol/L 135-145 BUN/Creatinine Ratio 12.7 8-20 Lipid Profile 11/09/2004 [facility] Cholesterol 135 mg/dL Less Than 78 (Trig/Chol/HDL) [phone] 200 Triglyceride 41 mg/dL 40-200 High Density Lipoprotein 55 mg/dL 40-60 Low Density Lipoprotein 72 mg/dL Less Than 100 79 Cholesterol/HDL Ratio 2.45 AVERAGE 1-4.97 Laboratory test finding 11/09/2004 [facility] Alt (SGPT) 21 U/L 17- 63 [phone] PSA Screening 1.9 NG/ML 0-4 80 Laboratory test 11/02/2003 [facility] TSH 1.82 MIU/ML 0.34-5.60 finding [phone] CBC With 11/02/2003 [facility] Platelet Count 242 CUMM 150-450 Electronic Diff [phone] White Blood Count 5.9 CUMM 4.8-10.8 Abs Basophils 0 0-0.2 Abs Eosinophils 0 0-0.6 Abs Grans 3.6 1.5-7.7 Abs Lymphs 1.8 1.0-4.8 Abs Mononuclear 0.5 0-0.8 Basophil % 0.6 % 0-2 Hematocrit 42 % 42-52 Hemoglobin 14.6 g/dL 14.0-18.0 Eosinophil % 0.6 % 0-6 Gran % 58.8 % 38-83 Lymph % 31.0 % 20-45 Mean Corpuscular HGB Cone 35 g/dL 32-36 Mean Corpuscular Hemoglob 31 pg 27-31 Mean Corpuscular Volume 87 um3 80-94 Mean Platelet Volume 7.4 um3 7.4-10.4 Mononuclear % 9.0 % 1-9 Red Cell Count 4.78 CUMM 4.6-6.2 Redcell Distribution WDTH 13 % 10.5-15 1 Serum levels of PSA measured using the [employer] DXI Hybritech immunoassay should not be interpreted as absolute evidence of the presence or absence of disease. The PSA value should be used in conjunction with other pertinent clinical diagnostic procedures. The values obtained with different assay methods or kits cannot be used interchangeably. 2 Normal Range 180 to 914 Indeterminate Range 145 to 180 Deficient Range <145 3 Desirable: <150 Borderline High: 150-199 High: 200-499 Very High: >500 4 Desirable: <200 Borderline High: 200-239 High: >239 5 Low: <40 Desirable: 40-60 High: >60 6 Desirable: <100 Near Optimal: 100-129 Borderline High: 130-159 High: 160-189 Very High: >189 7 [id number] SEE RESULT BELOW Name: DARIANA ROBISON : [address]: Sharad Burton DO Acct: [id number] Unit: [id number] AGE: 68 Location: [facility] Re06/04/18 SEX: M Status: DEP REF SPEC: [id number] JAY: 06/04/18- SUBM DR: Sharad Burton DO REQ: [id number] RECD: 06/04/18 STATUS: SEGUNDO CHAN DR: Addison Pink MD _ ORDERED: LEVEL 4/2 COMMENTS: [id number] FINAL DIAGNOSIS 1. Stomach, fundus, biopsy: -- Hyperplastic fundic gland polyps. 2. Distal esophagus, biopsy: -- Gastroesophageal transition zone mucosa with mild reflux esophagitis. -- No goblet cell/intestinal metaplasia or dysplasia identified. POST-OPERATIVE DIAGNOSIS EGD: minimal gastroesophageal junction irregular less than 1 cm, biopsy; 2 cm hiatal hernia; gastric - mild gastritis biopsy / CINTHYA test; fundic gland polyps, biopsy; duodenum - normal; colonoscopy: to terminal ileum; complete, good prep, left ascending - moderate GROSS DESCRIPTION 1. The specimen is received in formalin labeled, Biopsy Gastric Fundal Polyps, and consists of a 0.5 x 0.3 by up to 0.2 cm aggregate of handley-pink irregular soft tissue fragments which is submitted entirely in one cassette. 2. The specimen is received in formalin labeled, Biopsy Distal Esophagus, and consists of a 0.5 x 0.4 x 0.1 cm aggregate of handley-pink irregular soft tissue fragments which is submitted entirely in one cassette. Signed by and Reported on: Giovanni Holliday MD [id number] END OF REPORT DEPARTMENT OF PATHOLOGY, [address] [place] [address] Giovanni Holliday M.D. Director [facility] # [id number] SEE RESULT BELOW Name: DARIANA ROBISON : [address]: Sharad Burton DO Acct: [id number] Unit: [id number] AGE: 68 Location: [facility] Re06/04/18 SEX: M Status: DEP REF SPEC: [id number] JAY: 06/04/[address] [facility] [address]: Sharad Burton DO REQ: [id number] RECD: 06/04/18 STATUS: RUDDY CHAN DR: Addison Pink MD _ SOURCE: [facility]AS [facility]: ORDERED: Clotest COMMENTS: [id number] Procedure Result Reported Site Clotest Final 06/05/18- 1330 ML Clotest Negative * ML - Main Lab . END OF REPORT DEPARTMENT OF PATHOLOGY, [address] [place] [address] Giovanni Holliday M.D. Director [facility] # [id number] 11 Serum levels of PSA measured using the [employer] [place] DXI Hybritech immunoassay should not be interpreted as absolute evidence of the presence or absence of disease. The PSA value should be used in conjunction with other pertinent clinical diagnostic procedures. The values obtained with different assay methods or kits cannot be used interchangeably. 12 Desirable: <150 Borderline High: 150-199 High: 200-499 Very High: >500 13 Desirable: <200 Borderline High: 200-239 High: >239 14 Low: <40 Desirable: 40-60 High: >60 15 Desirable: <100 Near Optimal: 100-129 Borderline High: 130-159 High: 160-189 Very High: >189 16 Serum levels of PSA measured using the [employer] DXI Hybritech immunoassay should not be interpreted as absolute evidence of the presence or absence of disease. The PSA value should be used in conjunction with other pertinent clinical diagnostic procedures. The values obtained with different assay methods or kits cannot be used interchangeably. 17 Because ethnic data is not always readily available, this report includes an eGFR for both -Americans and non- Americans. The National Kidney Disease Education Program (NKDEP) does not endorse the use of the MDRD equation for patients that are not between the ages of 18 and 70, are , have extremes of body size, muscle mass, or nutritional status, or are non- or non-. According to the National Kidney Foundation, irrespective of diagnosis, the stage of the disease is based on the level of kidney function: Stage Description GFR(mL/min/1.73 m(2)) 1 Kidney damage with normal or decreased GFR 90 2 Kidney damage with mild decrease in GFR 60-89 3 Moderate decrease in GFR 30-59 4 Severe decrease in GFR 15-29 5 Kidney failure <15 (or dialysis) 18 Desirable <150 Borderline high 150-199 High 200-499 Very High >500 19 Desirable <200 Borderline high 200-239 High >239 20 Low <40 Desirable: 40-60 High: >60 21 Desirable: <100 mg/dL Near Optimal: 100-129 mg/dL Borderline High: 130-159 mg/dL High: 160-189 mg/dL Very High: >189 mg/dL 22 FASTING 12 HOUR 23 Serum levels of PSA measured using the [employer] DXI Hybritech immunoassay should not be interpreted as absolute evidence of the presence or absence of disease. The PSA value should be used in conjunction with other pertinent clinical diagnostic procedures. The values obtained with different assay methods or kits cannot be used interchangeably. 24 Reference Range and Interpretation: TnI (ng/mL) Interpretation Less Than 0.03 ng/mL Not supportive of diagnosis of [place] 0.03 - 0.50 ng/mL Indeterminate: suggest serial studies if clinically indicated. Greater than 0.5 ng/mL Consistent with diagnosis of [place] 25 >100 to <200 pg/mL: likely compensated congestive heart failure (CHF) 200 to 400 pg/mL: likely moderate CHF >400 pg/mL: likely moderate to severe CHF 26 Reference Range and Interpretation: TnI (ng/mL) Interpretation Less Than 0.03 ng/mL Not supportive of diagnosis of [place] 0.03 - 0.50 ng/mL Indeterminate: suggest serial studies if clinically indicated. Greater than 0.5 ng/mL Consistent with diagnosis of [place] 27 Because ethnic data is not always readily available, this report includes an eGFR for both -Americans and non- Americans. The National Kidney Disease Education Program (NKDEP) does not endorse the use of the MDRD equation for patients that are not between the ages of 18 and 70, are , have extremes of body size, muscle mass, or nutritional status, or are non- or non-. According to the National Kidney Foundation, irrespective of diagnosis, the stage of the disease is based on the level of kidney function: Stage Description GFR(mL/min/1.73 m(2)) 1 Kidney damage with normal or decreased GFR 90 2 Kidney damage with mild decrease in GFR 60-89 3 Moderate decrease in GFR 30-59 4 Severe decrease in GFR 15-29 5 Kidney failure <15 (or dialysis) 28 Serum levels of PSA measured using the [employer] DXI Hybritech immunoassay should not be interpreted as absolute evidence of the presence or absence of disease. The PSA value should be used in conjunction with other pertinent clinical diagnostic procedures. The values obtained with different assay methods or kits cannot be used interchangeably. 29 Serum levels of PSA measured using the [employer] DXI Hybritech immunoassay should not be interpreted as absolute evidence of the presence or absence of disease. The PSA value should be used in conjunction with other pertinent clinical diagnostic procedures. The values obtained with different assay methods or kits cannot be used interchangeably. 30 Desirable <150 Borderline high 150-199 High 200-499 Very High >500 31 Desirable <200 Borderline high 200-239 High >239 32 Low <40 Desirable: 40-60 High: >60 33 Desirable <100 Near Optimal 100-129 Borderline high 130-159 High 160-189 Very High >189 34 Serum levels of PSA measured using the [employer] [place] DXI Hybritech immunoassay should not be interpreted as absolute evidence of the presence or absence of disease. The PSA value should be used in conjunction with other pertinent clinical diagnostic procedures. The values obtained with different assay methods or kits cannot be used interchangeably. 35 Anion gap measurement may be of limited value in the presence of any alkalosis, especially in a combined acid base disorder. . 36 A metabolite of Naproxen, O-desmethylnaproxen, has been shown to interfere with the [place] method for measuring total bilirubin. Samples from patients who have taken Naproxen have shown spurious elevation in total bilirubin levels. 37 Because ethnic data is not always readily available, this report includes an eGFR for both -Americans and non- Americans. The National Kidney Disease Education Program (NKDEP) does not endorse the use of the MDRD equation for patients that are not between the ages of 18 and 70, are , have extremes of body size, muscle mass, or nutritional status, or are non- or non-. According to the National Kidney Foundation, irrespective of diagnosis, the stage of the disease is based on the level of kidney function: Stage Description GFR(mL/min/1.73 m(2)) 1 Kidney damage with normal or decreased GFR 90 2 Kidney damage with mild decrease in GFR 60-89 3 Moderate decrease in GFR 30-59 4 Severe decrease in GFR 15-29 5 Kidney failure <15 (or dialysis) 38 New Reference Range and Interpretation effective 05/09/2002 TnI (ng/ml) INTERPRETATION Less Than 0.06 ng/mL NOT SUPPORTIVE OF DIAGNOSIS OF [place] 0.06 - 0.50 ng/ml INDETERMINATE: SUGGEST SERIAL STUDIES IF CLINICALLY INDICATED. Greater than 0.5 ng/mL CONSISTENT WITH DIAGNOSIS OF [place] . 39 INTERPRETATION %CK-MB < 5% NOT SUPPORTIVE OF DIAGNOSIS OF [place] 5 - <10% INDETERMINATE; SUGGEST SERIAL STUDIES IF CLINICALLY INDICATED 10% OR > CONSISTENT WITH DIAGNOSIS OF [place] . 40 CHOLESTEROL INTERPRETATION: Desirable: Less than 200 MG/DL Borderline-High Risk: 200-239 MG/DL High-Risk: 240 MG/DL and over 41 HDL INTERPRETATION: Undesirable: High Risk: Less than 40 MG/DL Desirable: Low Risk: Greater than 60 MG/DL 42 LDL INTERPRETATION: Low Risk Optimal Level: LDL Less than 100 MG/DL Near or Above Optimal: LDL 100-129 MG/DL Borderline High Risk: LDL 130-159 MG/DL High Risk: LDL 160-189 MG/DL Very High Risk: LDL Greater than 189 MG/DL 43 Anion gap measurement may be of limited value in the presence of any alkalosis, especially in a combined acid base disorder. . 44 Because ethnic data is not always readily available, this report includes an eGFR for both -Americans and non- Americans. The National Kidney Disease Education Program (NKDEP) does not endorse the use of the MDRD equation for patients that are not between the ages of 18 and 70, are , have extremes of body size, muscle mass, or nutritional status, or are non- or non-. According to the National Kidney Foundation, irrespective of diagnosis, the stage of the disease is based on the level of kidney function: Stage Description GFR(mL/min/1.73 m(2)) 1 Kidney damage with normal or decreased GFR 90 2 Kidney damage with mild decrease in GFR 60-89 3 Moderate decrease in GFR 30-59 4 Severe decrease in GFR 15-29 5 Kidney failure <15 (or dialysis) 45 * SERUM LEVELS OF PSA MEASURED USING THE [employer] [place] ACCESS HYBRITECH IMMUNOASSAY SHOULD NOT BE INTERPRETED ABSOLUTE EVIDENCE OF THE PRESENCE OR ABSENCE OF DISEASE. THE PSA VALUE SHOULD BE USED IN CONJUNCTION WITH OTHER PERTINENT CLINICAL DIAGNOSTIC PROCEDURES. The values obtained with different assay methods or kits cannot be used interchangeably. 46 CHOLESTEROL INTERPRETATION: Desirable: Less than 200 MG/DL Borderline-High Risk: 200-239 MG/DL High-Risk: 240 MG/DL and over 47 HDL INTERPRETATION: Undesirable: High Risk: Less than 40 MG/DL Desirable: Low Risk: Greater than 60 MG/DL 48 LDL INTERPRETATION: Low Risk Optimal Level: LDL Less than 100 MG/DL Near or Above Optimal: LDL 100-129 MG/DL Borderline High Risk: LDL 130-159 MG/DL High Risk: LDL 160-189 MG/DL Very High Risk: LDL Greater than 189 MG/DL 49 Anion gap measurement may be of limited value in the presence of any alkalosis, especially in a combined acid base disorder. . 50 Because ethnic data is not always readily available, this report includes an eGFR for both -Americans and non- Americans. The National Kidney Disease Education Program (NKDEP) does not endorse the use of the MDRD equation for patients that are not between the ages of 18 and 70, are , have extremes of body size, muscle mass, or nutritional status, or are non- or non-. According to the National Kidney Foundation, irrespective of diagnosis, the stage of the disease is based on the level of kidney function: Stage Description GFR(mL/min/1.73 m(2)) 1 Kidney damage with normal or decreased GFR 90 2 Kidney damage with mild decrease in GFR 60-89 3 Moderate decrease in GFR 30-59 4 Severe decrease in GFR 15-29 5 Kidney failure <15 (or dialysis) 51 * SERUM LEVELS OF PSA MEASURED USING THE [employer] [place] ACCESS HYBRITECH IMMUNOASSAY SHOULD NOT BE INTERPRETED ABSOLUTE EVIDENCE OF THE PRESENCE OR ABSENCE OF DISEASE. THE PSA VALUE SHOULD BE USED IN CONJUNCTION WITH OTHER PERTINENT CLINICAL DIAGNOSTIC PROCEDURES. 52 Anion gap measurement may be of limited value in the presence of any alkalosis, especially in a combined acid base disorder. . 53 Note change in reference range as of 03/26/08. The change was based on recommendations from the [place] [employer]. 54 Please note change in reference range effective 08 . 55 A metabolite of Naproxen, O-desmethylnaproxen, has been shown to interfere with the [place] method for measuring total bilirubin. Samples from patients who have taken Naproxen have shown spurious elevation in total bilirubin levels. 56 Because ethnic data is not always readily available, this report includes an eGFR for both -Americans and non- Americans. The National Kidney Disease Education Program (NKDEP) does not endorse the use of the MDRD equation for patients that are not between the ages of 18 and 70, are , have extremes of body size, muscle mass, or nutritional status, or are non- or non-. According to the National Kidney Foundation, irrespective of diagnosis, the stage of the disease is based on the level of kidney function: Stage Description GFR(mL/min/1.73 m(2)) 1 Kidney damage with normal or decreased GFR 90 2 Kidney damage with mild decrease in GFR 60-89 3 Moderate decrease in GFR 30-59 4 Severe decrease in GFR 15-29 5 Kidney failure <15 (or dialysis) 57 New Reference Range and Interpretation effective 05/09/2002 TnI (ng/ml) INTERPRETATION Less Than 0.06 ng/mL NOT SUPPORTIVE OF DIAGNOSIS OF [place] 0.06 - 0.50 ng/ml INDETERMINATE: SUGGEST SERIAL STUDIES IF CLINICALLY INDICATED. Greater than 0.5 ng/mL CONSISTENT WITH DIAGNOSIS OF [place] . 58 * SERUM LEVELS OF PSA MEASURED USING THE [employer] ACCESS HYBRITECH IMMUNOASSAY SHOULD NOT BE INTERPRETED ABSOLUTE EVIDENCE OF THE PRESENCE OR ABSENCE OF DISEASE. THE PSA VALUE SHOULD BE USED IN CONJUNCTION WITH OTHER PERTINENT CLINICAL DIAGNOSTIC PROCEDURES. 59 Anion gap measurement may be of limited value in the presence of any alkalosis, especially in a combined acid base disorder. . 60 Note change in reference range as of 03/26/08. The change was based on recommendations from the [place] [employer]. 61 Please note change in reference range effective 08 . 62 A metabolite of Naproxen, O-desmethylnaproxen, has been shown to interfere with the [place] method for measuring total bilirubin. Samples from patients who have taken Naproxen have shown spurious elevation in total bilirubin levels. 63 Because ethnic data is not always readily available, this report includes an eGFR for both -Americans and non- Americans. The National Kidney Disease Education Program (NKDEP) does not endorse the use of the MDRD equation for patients that are not between the ages of 18 and 70, are , have extremes of body size, muscle mass, or nutritional status, or are non- or non-. According to the National Kidney Foundation, irrespective of diagnosis, the stage of the disease is based on the level of kidney function: Stage Description GFR(mL/min/1.73 m(2)) 1 Kidney damage with normal or decreased GFR 90 2 Kidney damage with mild decrease in GFR 60-89 3 Moderate decrease in GFR 30-59 4 Severe decrease in GFR 15-29 5 Kidney failure <15 (or dialysis) 64 CHOLESTEROL INTERPRETATION: Desirable: Less than 200 MG/DL Borderline-High Risk: 200-239 MG/DL High-Risk: 240 MG/DL and over 65 HDL INTERPRETATION: Undesirable: High Risk: Less than 40 MG/DL Desirable: Low Risk: Greater than 60 MG/DL 66 LDL INTERPRETATION: Low Risk Optimal Level: LDL Less than 100 MG/DL Near or Above Optimal: LDL 100-129 MG/DL Borderline High Risk: LDL 130-159 MG/DL High Risk: LDL 160-189 MG/DL Very High Risk: LDL Greater than 189 MG/DL 67 CHOLESTEROL INTERPRETATION: Desirable: Less than 200 MG/DL Borderline-High Risk: 200-239 MG/DL High-Risk: 240 MG/DL and over 68 HDL INTERPRETATION: Undesirable: High Risk: Less than 40 MG/DL Desirable: Low Risk: Greater than 60 MG/DL 69 LDL INTERPRETATION: Low Risk Optimal Level: LDL Less than 100 MG/DL Near or Above Optimal: LDL 100-129 MG/DL Borderline High Risk: LDL 130-159 MG/DL High Risk: LDL 160-189 MG/DL Very High Risk: LDL Greater than 189 MG/DL 70 Anion gap measurement may be of limited value in the presence of any alkalosis, especially in a combined acid base disorder. . 71 Note change in reference range as of 03/26/08. The change was based on recommendations from the [place] [employer]. 72 Please note change in reference range effective 08 . 73 FASTING 74 Anion gap measurement may be of limited value in the presence of any alkalosis, especially in a combined acid base disorder. . 75 Classification: Desirable . 76 CALCULATED LDL APPROXIMATES THE VALUE OF A DIRECT LDL MEASUREMENT. Classification: Near or above optimal . 77 Anion gap measurement may be of limited value in the presence of any alkalosis, especially in a combined acid base disorder. . 78 Classification: Desirable . 79 CALCULATED LDL APPROXIMATES THE VALUE OF A DIRECT LDL MEASUREMENT. Classification: Optimal Level . 80 * SERUM LEVELS OF PSA MEASURED USING THE [employer] ACCESS HYBRITECH IMMUNOASSAY SHOULD NOT BE INTERPRETED ABSOLUTE EVIDENCE OF THE PRESENCE OR ABSENCE OF DISEASE. THE PSA VALUE SHOULD BE USED IN CONJUNCTION WITH OTHER PERTINENT CLINICAL DIAGNOSTIC PROCEDURES. Procedures Date Code Description Status 06/04/2018 [id number] Colonoscopy Completed 02/20/2018 03943 Destruction Of Skin Lesions Up To 14 Flat Completed Warts/Molluscum Contag 12/03/2017 81728 Destruction Of Skin Lesions Up To 14 Flat Completed Warts/Molluscum Contag Encounters Type Date Location Provider Dx Diagnosis Office Visit 02/24/2019 Main Office Addison Pink, Z00.00 Encntr for general 2:00p M.D. adult medical exam w/o abnormal findings I73.00 Raynaud's syndrome without gangrene M25.511 Pain in right shoulder Z13.220 Encounter for screening for lipoid disorders K20.8 Other esophagitis Z12.11 Encounter for screening for malignant neoplasm of colon Z12.5 Encounter for screening for malignant neoplasm of prostate Z23 Encounter for immunization Z41.8 Encntr for oth proc for purpose oth than [facility] Office Visit 11/04/2018 4:30p Main Office Addison Pink M79.671 Pain in right M.D. foot M79.672 Pain in left foot I73.00 Raynaud's syndrome without gangrene Office Visit 02/20/2018 2:00p Main Office Addison Pink, Z00.01 Encounter for M.D. general adult medical exam w abnormal findings Z00.00 Encntr for general adult medical exam w/o abnormal findings Z71.89 Other specified counseling K20.8 Other esophagitis R25.2 Cramp and spasm Z23 Encounter for immunization B07.0 Plantar wart I73.00 Raynaud's syndrome without gangrene R25.2 Cramp and spasm Z12.11 Encounter for screening for malignant neoplasm of colon Z12.5 Encounter for screening for malignant neoplasm of prostate Office Visit 12/03/2017 1:00p Main Office Ansley Hackett B07.0 Plantar wart I73.00 Raynaud's syndrome without gangrene Z23 Encounter for immunization Z41.8 Encntr for oth proc for purpose oth than [facility] M79.671 Pain in right foot Office Visit 02/19/2017 2:00p Main Office Addison Pink, Z00.00 Encntr for M.D. general adult medical exam w/o abnormal findings K20.8 Other esophagitis Z12.5 Encounter for screening for malignant neoplasm of prostate Z13.220 Encounter for screening for lipoid disorders Z71.89 Other specified counseling Office Visit 06/22/2016 3:35p Main Office Sahra Yeager, S20.461A Insect bite PA (nonvenomous) of right back wall of thorax, init Z23 Encounter for immunization Z41.8 Encntr for oth proc for purpose oth than [facility] Office Visit 12/08/2015 2:00p Main Office Addison Pink, Z00.00 Encntr for M.D. general adult medical exam w/o abnormal findings K20.8 Other esophagitis Z12.5 Encounter for screening for malignant neoplasm of prostate Z71.89 Other specified counseling R10.12 Left upper quadrant pain Office Visit 11/30/2014 2:00p Main Office Addison Pink, V70.0 Examination General M.D. Medical Routine AT [facility] 530.19 Esophagitis Other 719.43 Pain Joint Forearm Office Visit 10/17/2013 3:30p Main Office Addison Pink, 401.1 Hypertension Benign M.D. 726.32 Epicondylitis Lateral 530.19 Esophagitis Other V70.0 Examination General Medical Routine AT [facility] Care [facility] V76.44 Screening For Malig Skyler Prostate Office Visit 10/16/2012 3:30p Main Office Addison Pink, V70.0 Examination General M.D. 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 Unspec 719.41 Pain Joint Shoulder Region Office Visit 10/16/2011 3:30p Main Office Addison Pink, 401.1 Hypertension Benign M.D. 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 272.0 Hypercholesterolemia Pure 530.19 Esophagitis Other V76.44 Screening For Malig Skyler Prostate 425.4 Cardiomyopathy Other Prim Office Visit 09/30/2010 3:30p Main Office Addison Pink, 530.19 Esophagitis Other M.D. 401.1 Hypertension Benign 272.0 Hypercholesterolemia Pure V76.44 Screening For Malig Skyler Prostate V70.0 Examination General Medical Routine AT [facility] 719.45 Pain Joint Pelvic Region & Thigh 719.46 Pain Joint Lower Leg Office Visit 02/18/2010 4:45p Main Office Addison Pink, 786.50 Pain Chest Unspec M.D. Office Visit 09/29/2009 2:00p Main Office Addison Pink, 401.1 Hypertension Benign M.D. 272.0 Hypercholesterolemia Pure 214.1 Lipoma Other Skin And Subcutaneous Tissue 425.4 Cardiomyopathy Other Prim 786.59 Pain Chest Other V76.44 Screening For Malig Skyler Prostate 719.43 Pain Joint Forearm V04.81 Need For Prophylactic Vaccination & Inoculation/Influenza V07.2 Prophylactic Immunotherapy V70.0 Examination General Medical Routine AT Health Care Facility Office Visit 01/23/2007 11:15a Main Office Addison Pink, 784.0 Headache M.D. Office Visit 01/30/2006 8:55a Main Office Addison Pink, 401.1 Hypertension Benign M.D. 272.0 Hypercholesterolemia Pure V76.44 Screening For Malig Skyler Prostate V70.0 Examination General Medical Routine AT Health Care Facility V06.1 Bldkvjnytz-Lvzaslj-Eykjbsnv Combined (DTaP) V07.2 Prophylactic Immunotherapy Office Visit 10/31/2004 2:00p Main Office Addison Pink, 401.1 Hypertension Benign M.D. 272.0 Hypercholesterolemia Pure V76.44 Screening For Malig Skyler Prostate V70.0 Examination General Medical Routine AT Health Care Facility Office Visit 07/27/2004 12:55p Main Office Joesph 476.0 Laryngitis Chronic Mike Jaime Office Visit 11/02/2003 2:00p Main Office Joesph 425.4 Cardiomyopathy Jake Jaime M.D. Prim 796.2 Blood Pressure Reading Elevated W/O Hypertension 272.0 Hypercholesterolemia Pure 278.00 Obesity Unspec 780.79 Malaise And Fatigue Other V70.0 Examination General Medical Routine AT Health Care Facility Office Visit 02/16/2003 10:30a Main Office Joesph 425.4 Cardiomyopathy Jake Jaime M.D. Prim 719.41 Pain Joint Shoulder Region Plan of Treatment Future Appointment(s):02/27/2020 2:00 pm - Addison Pink M.D. at Main Qpzwbp0202/24/2019 - Addison Pink M.D.Z00.00 Encounter for general adult medical examination without abnoComments:Will f/u in 1yr. Discussed doing PSA alone for next year but he really prefers repeating all the tests we did this year.Follow up:RTO 1yr [facility]. Get bloodwork (fasting) 1 week prior.I73.00 Raynaud 's syndrome without gangreneNew Medication:Amlodipine Besylate 5 mg - take 1 tablet daily for pain in feet (Raynaud's syndrome)Comments:Failed cilostazal ( adverse effects). Will try amlodipine wc was previously Rx'd but never tried. If not helping but well tolerated (would give it at least 1 month) he may call back for inc dose. Discussed S/E risks incl those related to low BP as well as edema.M25.511 Pain in right shoulderComments:While pain is over the LH of biceps tendon and has tenderness just in that area, movements wc cause pain are c/w RTC pathology. I instructed him on a couple of wall exercise as well as doing int-ext rotation through 90 degrees while lying on side and carrying a 2lb wt, then add falling into wall gently type exercise. Do 2 sets a few times a day. If not resolving with this he will call back for PT sbxstuvlT58.220 Encounter for screening for lipoid jpoonuxjoP86.8 Other snrljmwftpnF26.11 Encounter for screening for malignant neoplasm of oxpotW81.5 Encounter for screening for malignant neoplasm of [id number] Encounter for immunizationComments:Counseled re PPSV 23, VIS provided.Z41.8 Encounter for other procedures for purposes other than remed
[2019-03-24 09:53] LABS: ABS Basophils 0.1 10^3/ul (0-0.2); ABS Eosinophils 0.2 10^3/ul (0-0.6); ABS Lymphocytes 1.2 10^3/ul (1.0-4.8); ABS Monocytes 0.6 10^3/ul (0-0.8); ABS Neutrophils 3.4 10^3/ul (1.5-7.7); Eosinophil % 3.1 %; Hematocrit 46 % (42-52); Hemoglobin 15.5 g/dL (14.0-18.0); Lymphocyte % 22.9 %; Mean Corpuscular HGB Conc 34 g/dL (31-36); Mean Corpuscular Hemoglobin 30 pg (27-31); Mean Corpuscular Volume 89 fL (80-94); Mean Platelet Volume 6.8 fL (7.4-10.4); Nucleated Red Blood Cells % 0.1; Platelet Count 238 10^3/uL (150-450); Red Blood Count 5.15 10^6 /uL (4.18-5.48); Red Cell Distribution Width 14 % (10-15); White Blood Count 5.4 10^3/uL (3.5-10.8)
--- NOTE | 2019-03-24 09:54 | ED ---
HPI Chest Pain - HPI Summary HPI Summary: Patient is a 69 y/o M presenting to ED with complaints of chest discomfort and bilateral shoulder pain for the past few days. He additionally endorses FONTANEZ and some dizziness characterized as light-headedness. SOB, N/V, pain in legs are denied. He denies any recent heavy lifting or trauma. Patient does note that he recently had a long car ride from [place]. PMHx of GERD and hiatal hernia. Patient takes omeprazole. He notes that it has been "quite a while" since his last stress test. PMHx of HTN, HLD, and diabetes is denied. FMHx of cardiac disease, HTN, and HLD are denied as well. He denies tobacco and substance usage but endorses rare alcohol usage. On triage, pain is rated 5/10, nothing is noted to aggravate/alleviate Sx. Home medications and allergies are reviewed. - History of Current Complaint Chief Complaint: EDChestPainROMI Time Seen by Provider: 03/24/19 09:38 Hx Obtained From: Patient Onset/Duration: Started Days Ago, Still Present Timing: Lasting Days Current Severity: Moderate Pain Intensity: 5 Pain Scale Used: 0-10 Numeric Aggravating Factor(s): Nothing Alleviating Factor(s): Nothing Associated Signs and Symptoms: Positive: Chest Pain, Headaches, Lightheadedness , Other: - positive - bilateral shoulder pain. Negative: Shortness of Breath, Nausea, Calf Pain/Swelling, Vomiting - Allergy/Home Medications Allergies/Adverse Reactions: Allergies Allergy/AdvReac Type Severity Reaction Status Date / Time atorvastatin [From Lipitor] Allergy Joint Pain Verified 05/27/18 15:20 PMH/Surg Hx/FS Hx/Imm Hx Endocrine/Hematology History: Denies: Hx Diabetes Cardiovascular History: Denies: Hx Hypertension GI History: Reports: Hx Gastroesophageal Reflux Disease - Surgical History Surgery Procedure, Year, and Place: HERNIA REPAIR, POLOP REMOVED FROM [facility] Infectious Disease History: No Infectious Disease History: Denies: Traveled Outside the [place] in Last 30 Days - Family History Known Family History: Positive: Other - AVM (daughter) Negative: Hypertension, Blood Disorder - Social History Alcohol Use: Rare Substance Use Type: Reports: None Smoking Status (MU): Never Smoked Tobacco Review of Systems Positive: Chest Pain Negative: Shortness Of Breath Negative: Vomiting, Nausea Musculoskeletal: Other - positive - bilateral shoulder pain; negative - BLE pain Neurological: Other - positive - lightheadedness Positive: Headache All Other Systems Reviewed And Are Negative: Yes Physical Exam - Summary Physical Exam Summary: VITAL SIGNS: Reviewed. GENERAL: Patient is a well-developed and nourished male who is lying comfortable in the stretcher. Patient is not in any acute respiratory distress. HEAD AND FACE: No signs of trauma. No ecchymosis, hematomas or skull depressions. No sinus tenderness. EYES: PERRLA, EOMI x 2, No injected conjunctiva, no nystagmus. EARS: Hearing grossly intact. Ear canals and tympanic membranes are within normal limits. MOUTH: Oropharynx within normal limits. NECK: Supple, trachea is midline, no adenopathy, no JVD, no carotid bruit, no c- spine tenderness, neck with full ROM. CHEST: Symmetric, no tenderness at palpation. LUNGS: Clear to auscultation bilaterally. No wheezing or crackles. CVS: Regular rate and rhythm, S1 and S2 present, no murmurs or gallops appreciated. ABDOMEN: Soft, non-tender. No signs of distention. No rebound, no guarding, and no masses palpated. Bowel sounds are normal. EXTREMITIES: FROM in all major joints, no edema, no cyanosis or clubbing. NEURO: Alert and oriented x 3. No acute neurological deficits. Speech is normal and follows commands. SKIN: Dry and warm. Triage Information Reviewed: Yes Vital Signs On Initial Exam: Initial Vitals Temp Pulse Resp BP Pulse Ox 96.6 F 61 20 165/92 98 03/24/19 09:37 03/24/19 09:37 03/24/19 09:37 03/24/19 09:37 03/24/19 09:37 Vital Signs Reviewed: Yes Diagnostics - Vital Signs Vital Signs Temp Pulse Resp BP Pulse Ox 03/24/19 09:37 96.6 F 61 20 165/92 98 - Laboratory Result Diagrams: 03/24/19 09:44 03/24/19 09:44 Lab Statement: Any lab studies that have been ordered have been reviewed, and results considered in the medical decision making process. - Radiology CXR Radiology Interpretation Completed By: Radiologist Summary of Radiographic Findings: CXR showed no acute cardiopulmonary process by radiograph. This report was reviewed by Dr. Ricketts. - EKG 0935 Cardiac Rate: Bradycardia - rate of 56 BPM EKG Rhythm: Sinus Bradycardia Summary of EKG Findings: EKG showed sinus bradycardia with rate of 56 BPM, normal axis, no ST elevation. Re-Evaluation - Re-Evaluation First Eval Re-Evaluation Time: 13:25 Comment: I discussed all the findings and test results with the patient. Patient was instructed to return to the emergency room immediately if any of the symptoms return worsens. Plan of care was discussed with the patient and understands and agrees. All questions were answered at patient satisfaction. There were no further complaints or concerns. Lung exam before discharge: CTA B/ L. Good air exchange. No wheezing or crackles heard. CVS: S1 and S2 present. No murmurs appreciated. Patient is alert and oriented x 3. Patient is hemodynamically stable. Patient will be discharged home with follow up PCP in the next 2-3 days Chest Pain Course/Dx - Course Assessment/Plan: Patient is a 69 y/o M presenting to ED with complaints of chest discomfort and bilateral shoulder pain for the past few days. He additionally endorses FONTANEZ and some dizziness characterized as light-headedness. SOB, N/V, pain in legs are denied. He denies any recent heavy lifting or trauma. Patient does note that he recently had a long car ride from [place]. PMHx of GERD and hiatal hernia. Patient takes omeprazole. He notes that it has been "quite a while" since his last stress test. PMHx of HTN, HLD, and diabetes is denied. Blood test results without any significant abnormality except for glucose of 104. D-dimer is less than 200, which is negative, and the first troponin is 0.00. EKG shows a sinus bradycardia without ST elevation. Chest x- ray impression: No acute cardiopulmonary process. Second troponin is 0.00. Therefore, the patient will be discharged home with follow-up with primary care physician. I discussed all the findings and test results with the patient. Patient was instructed to return to the emergency room immediately if any of the symptoms return worsens. Plan of care was discussed with the patient and understands and agrees. All questions were answered at patient satisfaction. There were no further complaints or concerns. Lung exam before discharge: CTA B/ L. Good air exchange. No wheezing or crackles heard. CVS: S1 and S2 present. No murmurs appreciated. Patient is alert and oriented x 3. Patient is hemodynamically stable. Patient will be discharged home with follow up PCP in the next 2-3 days - Diagnoses Provider Diagnoses: Atypical chest pain Discharge - Sign-Out/Discharge Documenting (check all that apply): Patient Departure - discharge Patient Received Moderate/Deep Sedation with Procedure: No - Discharge Plan Condition: Stable Disposition: HOME Patient Education Materials: Chest Pain (ED) Referrals: Addison Pink MD [Primary Care Provider] - 3 Days Additional Instructions: PLEASE RETURN TO ED FOR ANY NEW OR WORSENING SYMPTOMS. PLEASE FOLLOW-UP WITH YOUR PRIMARY CARE PHYSICIAN WITHIN THREE DAYS. - Billing Disposition and Condition Condition: STABLE Disposition: Home - Attestation Statements Document Initiated by Mukeshibe: Yes Documenting Scribe: AFNNIE HILLS Provider For Whom Leia is Documenting (Include Credential): RADHA RICKETTS MD Scribe Attestation: FANNIE Null, scribed for RADHA RICKETTS MD on 03/25/19 at 0725. Scribe Documentation Reviewed: Yes Provider Attestation: The documentation as recorded by the FANNIE amos accurately reflects the service I personally performed and the decisions made by RADHA chirinos MD Status of Scribe Document: Viewed
[2019-03-24 10:16] LABS: ALT 20 U/L (7-52); AST 18 U/L (13-39); Albumin 4.3 g/dL (3.2-5.2); Albumin/Globulin Ratio 1.7 (1-3); Alkaline Phosphatase 73 U/L (34-104); Anion Gap 4 mmol/L (2-11); BUN/Creatinine Ratio 13.8 (8-20); Blood Urea Nitrogen 13 mg/dL (6-24); C Reactive Protein < 1.00 mg/L (<8.01); CKMB ng/mL 4.2 ng/mL (0.6-6.3); CO2 Carbon Dioxide 30 mmol/L (22-32); Chloride 107 mmol/L (101-111); Creatine Kinase 118 U/L (10-223); EGFR African American 96.9 (>60); Globulin 2.5 g/dL (2-4); Glucose 104 mg/dL (70-100); Potassium 4.3 mmol/L (3.5-5.0); Sodium 141 mmol/L (135-145); Total Protein 6.8 g/dL (6.4-8.9)
[2019-03-24 11:15] LABS: INR 0.97 (0.82-1.09)
[2019-03-24 14:11] VITALS: BP 142/91
== END 2019-03-24 13:45 | disposition home or self-care (01) ==
LOC: ED 09:28
DX: R07.89 Other chest pain (principal); K21.9 Gastro-esophageal reflux disease without esophagitis; Z88.8 Allergy status to other drugs, medicaments and biological substances
CPT/HCPCS: 36415; 71046; 80053; 82550; 82553; 84484; 85025; 85379; 85610; 86140; 93005; 99282

== ENCOUNTER 2019-07-01 08:52 | Observation (INO) | payer MEDICARE ==
[2019-07-01] MEDS ORDERED: Ondansetron ODT TAB* 4 MG PO ONE (09:10)
[2019-07-01] MEDS ORDERED: Meclizine TAB* 12.5 MG PO ONE (09:10)
[2019-07-01] MEDS ORDERED: NS 0.9% 1000 ML** 1,000 ML IV ONE (09:10)
--- NOTE | 2019-07-01 09:13 | ED ---
Dizziness - HPI Summary HPI Summary: The patient is a 69 y/o M presenting to [facility] with a chief complaint of room- spinning dizziness onset over the last two days with worsening this morning. He reports that he initially had intermittent dizziness that would subside within an hour, but this morning he woke up and had more severe room-spinning dizziness that has been constant. He endorses nausea and tinnitus. He denies any headache, blurred vision, chest pain, palpitations, or shortness of breath. Symptoms are aggravated with head movement specifically to the right. He denies vomiting, sore throat, or sinus discomfort. Currently, his symptoms are rated 6/ 10 in severity. No recent upper respiratory infections. No history of vertigo. PMHx: GERD, hernia repair. Nonsmoker, rare EtOH, no substance use. Mediations reviewed. Allergies noted. - History Of Current Complaint Chief Complaint: EDDizziness Stated Complaint: HEADACHE, DIZZYNESS PER PT Hx Obtained From: Patient Onset/Duration: Still Present Timing: Constant Severity Initially: Mild Severity Currently: Moderate Character: Room Spinning, Dizzy Aggravating Factor(s): Position Change - moving head especially to right Associated Signs And Symptoms: Positive: Nausea, Tinnitus. Negative: Vomiting, Other: - sore throat, sinus discomfort - Allergies/Home Medications Allergies/Adverse Reactions: Allergies Allergy/AdvReac Type Severity Reaction Status Date / Time atorvastatin [From Lipitor] Allergy Joint Pain Verified 05/27/18 15:20 Home Medications: Home Medications NK [No Home Medications Reported] 07/01/19 [History Confirmed 07/01/19] PMH/Surg Hx/FS Hx/Imm Hx Endocrine/Hematology History: Denies: Hx Diabetes Cardiovascular History: Denies: Hx Hypercholesterolemia, Hx Hypertension GI History: Reports: Hx Gastroesophageal Reflux Disease - Surgical History Surgical History: Yes Surgery Procedure, Year, and Place: HERNIA REPAIR, POLOP REMOVED FROM [facility] Infectious Disease History: No Infectious Disease History: Denies: Traveled Outside the [place] in Last 30 Days - Family History Known Family History: Positive: Other - AVM (daughter) Negative: Hypertension, Blood Disorder - Social History Alcohol Use: Rare Hx Substance Use: No Substance Use Type: Reports: None Hx Tobacco Use: No Smoking Status (MU): Never Smoked Tobacco Review of Systems Negative: Blurred Vision Positive: Other - tinnitus; Negative: sinus discomfort. Negative: Sore Throat Negative: Palpitations, Chest Pain Negative: Shortness Of Breath Positive: Nausea. Negative: Vomiting Neurological: Other - room-spinning dizziness Negative: Headache All Other Systems Reviewed And Are Negative: Yes Physical Exam - Summary Physical Exam Summary: VITAL SIGNS: Reviewed. GENERAL: Patient is a well-developed and nourished male who is lying comfortable in the stretcher. Patient is not in any acute respiratory distress. HEAD AND FACE: No signs of trauma. No ecchymosis, hematomas or skull depressions. No sinus tenderness. EYES: PERRLA, EOMI x 2, No injected conjunctiva. Horizontal nystagmus to the left. No photophobia. EARS: Hearing grossly intact. Ear canals and tympanic membranes are within normal limits. MOUTH: Oropharynx within normal limits. NECK: Supple, trachea is midline, no adenopathy, no JVD, no carotid bruit, no c- spine tenderness, neck with full ROM. No meningeal signs, no Kernig's or brudzinskis signs. CHEST: Symmetric, no tenderness at palpation. LUNGS: Clear to auscultation bilaterally. No wheezing or crackles. CVS: Regular rate and rhythm, S1 and S2 present, no murmurs or gallops appreciated. ABDOMEN: Soft, non-tender. No signs of distention. No rebound, no guarding, and no masses palpated. Bowel sounds are normal. EXTREMITIES: FROM in all major joints, no edema, no cyanosis or clubbing. NEURO: Alert and oriented x 3. No acute neurological deficits. Speech is normal and follows commands. SKIN: Dry and warm. GCS: 15. NIH: 0. Triage Information Reviewed: Yes Vital Signs On Initial Exam: Initial Vitals Temp Pulse Resp BP Pulse Ox 97.2 F 51 18 166/86 98 07/01/19 08:54 07/01/19 08:54 07/01/19 08:54 07/01/19 08:54 07/01/19 08:54 Vital Signs Reviewed: Yes - James Coma Scale Best Eye Response: 4 - Spontaneous Best Motor Response: 6 - Obeys Commands Best Verbal Response: 5 - Oriented Coma Scale Total: 15 Procedures - Sedation Patient Received Moderate/Deep Sedation with Procedure: No Diagnostics - Vital Signs Vital Signs Temp Pulse Resp BP Pulse Ox 07/01/19 08:54 97.2 F 51 18 166/86 98 - Laboratory Result Diagrams: 07/01/19 10:04 07/01/19 10:04 Lab Statement: Any lab studies that have been ordered have been reviewed, and results considered in the medical decision making process. - Radiology Chest X-Ray Radiology Interpretation Completed By: Radiologist Summary of Radiographic Findings: Impression: No evidence for acute intrathoracic disease. ED physician has reviewed this report. - CT Brain CT CT Interpretation Completed By: Radiologist Summary of CT Findings: Impression: 1. No acute intracranial abnormality by CT. 2. Periarticular calcifications from the left TMJ are similar from 2016. 3. Periarticular dystrophic calcifications about the left TMJ similar from 2016. Although this is favored to be small business sales representative of benign tumoral calcinosis, an elective neck MRI with contrast could be performed to rule out a more sinister lesion. ED physician has reviewed this report. - EKG 921 Cardiac Rate: Bradycardia - 47 BPM EKG Rhythm: Sinus Bradycardia EKG Comparison: No Significant Change - Similar to previous EKG taken on . Summary of EKG Findings: EKG at 921 reveals sinus bradycardia at [address] elevations. ED physician has reviewed and interpreted this EKG. National Institutes Of Health - NIH Scale Level of Consciousness: Alert/Keenly Responsive Ask Patient the Month and His/Her Age: Both Correct Ask Pt to Open/Close Eyes and Lathe Puller/Release Non-Paretic Hand: Both Correctly Best Gaze (Only Horizontal Eye Movement): Normal Visual Field Testing: No Visual Loss Facial Paresis-Pt to Smile & Close Eyes or Grimace Symmetry: Normal/Symmetrical Motor Function - Right Arm: No Drift-Holds 10 Seconds Motor Function - Left Arm: No Drift-Holds 10 Seconds Motor Function - Right Leg: No Drift-Holds 10 Seconds Motor Function - Left Leg: No Drift-Holds 10 Seconds Limb Ataxia-Must be out of Proportion to Weakness Present: Absent Sensory (Use Pinprick to Test Arms/Legs/Trunk/Face): Normal Best Language (Describe Picture, Name Items): No Aphasia Dysarthria (Read Several Words): Normal Extinction and Inattention: No Abnormality Total Score: 0 Re-Evaluation - Re-Evaluation First Eval Re-Evaluation Time: 10:55 Change: Unchanged Comment: He is still very dizzy. We discussed results and plan for admission. Dizzy Course/Dx - Course Assessment/Plan: This patient is a 69-year-old male who presents to the emergency department with a chief complaint of dizziness. Patient reports that this morning he woke up with room-spinning dizziness. He reports that he has been having dizziness for the last 2 days which usually disappears after a couple hours. Today he reports the symptoms are not resolving. He has ringing in his ears. Denies any headache, blurred vision, chest pain, shortness of breath, or palpitations. PMH: None. In the ED course, the patient was placed on the mortgage professional, IV placed, and he was given IV fluids, Zofran for nausea, and meclizine for dizziness. Blood work without a significant abnormality except for glucose of 113 and magnesium of 1.8. Chest x-ray impression: No evidence for acute intrathoracic disease. Head CT impression: No acute intracranial abnormality by CT. Periauricular calcifications from the left TMJ similar to thousand and 16. Periarticular dystrophic calcifications about the left TMJ similar to 2016. I repeated my neurological exam, and it is normal except that the patient is ataxic. The patient was unable to ambulate. Therefore, I discussed my physical exam and findings with Dr. Burrell, and he agrees to consult for the patient. Patient not a candidate for TPA. Last known well last night. After his consultation he recommends admission to the hospitalist and aspirin. I discussed my physical exam and findings with Dr. Wetzel, who accepted the patient for admission. - Diagnoses Differential Diagnosis/HQI/PQRI: Benign Paroxysmal Positional Vertigo, CVA, Dysrhythmia, Hypovolemia, Transient Ischemic Attack, Vasovagal Reaction Provider Diagnoses: Symptomatic bradycardia, CVA (cerebral vascular accident) - Provider Notifications Discussed Care Of Patient With: Maria Luz Wetzel - hospitalist Time Discussed With Above Provider: 10:51 Instructed by Provider To: Other - I discussed the patient's case with Dr. Wetzel, and she accepts the patient for admission. Since the patient is still experiencing dizziness, I consulted with Dr. Burrell from neurology at 1056. He states that he sees a cerebellar stroke on the CT despite negative impression, so he will come see the patient in the ED to evaluate him. They will order a MRI during admission. Discharge ED - Sign-Out/Discharge Documenting (check all that apply): Patient Departure - Patient accepted for admission by Dr. Wetzel. - Discharge Plan Condition: Stable Disposition: ADMITTED TO [facility] - Billing Disposition and Condition Condition: STABLE Disposition: Admitted to [facility] - Attestation Statements Document Initiated by Leia: Yes Documenting Scribe: Lauren Hope Provider For Whom Leia is Documenting (Include Credential): Dr. Taj Ricketts MD Scribe Attestation: Lauren Null scribed for Dr. Taj Ricketts MD on 07/01/19 at 1814. Scribe Documentation Reviewed: Yes Provider Attestation: The documentation as recorded by the Lauren amos accurately reflects the service I personally performed and the decisions made by me, Dr. Taj Ricketts MD Status of Scribe Document: Viewed
[2019-07-01 10:12] LABS: ABS Eosinophils 0.1 10^3/ul (0-0.6); ABS Lymphocytes 0.7 10^3/ul (1.0-4.8); ABS Monocytes 0.4 10^3/ul (0-0.8); Eosinophil % 1.5 %; Hematocrit 43 % (42-52); Hemoglobin 14.9 g/dL (14.0-18.0); Lymphocyte % 11.9 %; Mean Corpuscular HGB Conc 35 g/dL (31-36); Mean Corpuscular Hemoglobin 31 pg (27-31); Mean Corpuscular Volume 88 fL (80-94); Mean Platelet Volume 6.7 fL (7.4-10.4); Platelet Count 241 10^3/uL (150-450); Red Blood Count 4.81 10^6 /uL (4.18-5.48); Red Cell Distribution Width 14 % (10-15); White Blood Count 6.2 10^3/uL (3.5-10.8)
[2019-07-01 10:31] LABS: ALT 22 U/L (7-52); AST 19 U/L (13-39); Albumin 3.9 g/dL (3.2-5.2); Albumin/Globulin Ratio 1.8 (1-3); Alkaline Phosphatase 61 U/L (34-104); Anion Gap 4 mmol/L (2-11); BUN/Creatinine Ratio 18.7 (8-20); Blood Urea Nitrogen 17 mg/dL (6-24); C Reactive Protein < 1.00 mg/L (<8.01); CO2 Carbon Dioxide 29 mmol/L (22-32); Calcium 8.8 mg/dL (8.6-10.3); Chloride 108 mmol/L (101-111); EGFR African American 100.6 (>60); EGFR Non-African American 83.1 (>60); Globulin 2.2 g/dL (2-4); Glucose 113 mg/dL (70-100); Magnesium 1.8 mg/dL (1.9-2.7); Potassium 4.8 mmol/L (3.5-5.0); Sodium 141 mmol/L (135-145); Total Protein 6.1 g/dL (6.4-8.9)
[2019-07-01] MEDS ORDERED: Magnesium Oxide TAB* 400 MG PO ONE (10:42)
[2019-07-01 11:25] LABS: TSH (Thyroid Stimulating Horm) 1.87 mcIU/mL (0.34-5.60)
[2019-07-01] MEDS ORDERED: Aspirin 81 mg CHEW TAB* 81 MG TAB.CHEW PO ONE (11:26)
[2019-07-01] MEDS ORDERED: Acetaminophen TAB* 325 MG PO PRN (12:12)
[2019-07-01 12:15] LABS: Urine Appearance Cloudy; Urine Bilirubin Negative (Negative); Urine Blood Negative (Negative); Urine Color Yellow; Urine Glucose Negative (Negative); Urine Ketones Negative (Negative); Urine Nitrite Negative (Negative); Urine Protein Negative (Negative); Urine Specific Gravity 1.014 (1.010-1.030); Urine Urobilinogen Negative (Negative)
[2019-07-01] MEDS ORDERED: Enoxaparin(*) 40 MG/0.4 ML SYR SUBCUT SCH (13:00)
--- NOTE | 2019-07-01 14:08 | CONS ---
NEUROLOGY CONSULTATION NOTE: DATE OF CONSULT: 07/01/19 CONSULTED BY: Dr. Ricketts. REASON FOR CONSULT: Vertigo. CHIEF COMPLAINT: Vertigo, spinning sensation, feels unsteady. HISTORY OF PRESENT ILLNESS: Mr. Clement Robison is a 69-year-old left-handed retired man who has multiple neurological complications over the past 1 week. He has noticed some neck discomfort and neck pain over the past 1 week. The pain is on the right side. The pain is pressure-like sensation. He has not had any neck injury but has been hunting lately. Over the last 2 days, he has been complaining of intermittent vertigo. The vertigo is positional. His symptoms worsen when he stands up and walks around and resolve when he sits still. The symptoms usually last for approximately no more than 1 hour. He went to sleep last night at around 10 p.m. He woke up at 7 a.m. feeling constant vertigo. The symptoms subside but never go away. He does have chronic tinnitus. He denied any hearing loss. He denied any double vision, blurry vision but does feel nauseated. He feels unsteady when ambulating. He has not had any falls. He denied any weakness, although on examination he noticed that the right leg is weaker than the left. He denied any slurred speech or word finding difficulty. He is aspirin naive. He has taken atorvastatin in the past and that caused arthralgia. NIH stroke scale 1 for dysmetria to [id number] on the right lower extremity. The patient is not a candidate for IV tPA or mechanical thrombectomy as he is presenting outside the therapeutic window. CT head without contrast was read as normal; however, there is a hypodensity in the right cerebellum, which could be artifactual. PAST MEDICAL HISTORY: Arthralgia related to atorvastatin, possible Raynaud's disease, history of chest pain in 2015. PAST SURGICAL HISTORY: Inguinal hernia repair. ALLERGIES: ATORVASTATIN causing myalgias. FAMILY HISTORY: Daughter suffered from a stroke after an AVM rupture. She is wheelchair bound. Dad is still alive at age 92. His mother last November. SOCIAL HISTORY: The patient is . He lives with his spouse. He denied tobacco use. He denied drug use. He drinks alcohol rarely in special occasion. He is retired. He goes hunting lately. There has been no exposure to tick bites. REVIEW OF SYSTEMS: A 12-point review of systems was obtained and otherwise negative except for what was mentioned in the HPI. PHYSICAL EXAM: Vitals: Temperature of 97.2, pulse of 53, respiratory rate of 18, oxygen saturation of 98%, blood pressure is 166/86. Orthostatic vitals were obtained and are normal; lying 145/86, sitting 154/88, standing 147/97. General: Well-nourished, well-developed, built man in no acute distress. Head: Atraumatic and normocephalic without any obvious abnormality. Neck is supple and symmetrical with no carotid bruits. Eyes: Conjunctivae/corneas are clear. Cardiovascular: Regular rate and rhythm with normal S1 and S2. Chest: Clear to auscultation bilaterally with no wheezing or rhonchi. Extremities: Normal range of motion with no cyanosis or edema. No hammertoes or high arches. Skin : No skin lesions or lacerations. Psych: Affect is broad and normal mood. Easy to establish rapport. Neurological Examination: Mental Status: Awake, alert, and oriented to person, place, time, and general circumstances. His speech and language including expression, repetition, and comprehension were assessed and found to be normal. Cranial Nerves: Pupils are equal, round, and reactive to light. Extraocular muscles are intact. He does have a primary gaze nystagmus with the face beating towards the right side. He has exacerbation of the nystagmus when looking towards the right with no nystagmus looking towards the left. He has no vertical nystagmus. Widening of the palpebral fissure on the right side. HINT examination is negative but the skew deviation is positive, especially when covering and uncovering the right eye. There is no ptosis. Motor Examination: 5/5 strength in the upper and lower extremities except for 4/5 weakness on right hip flexion. Tone is normal throughout. Sensation is intact to light touch throughout. Coordination: Normal [id number] but dysmetria to ejps-gj-touy testing on the right side. Gait: Slight swaying towards the right. Romberg sign negative. LABS/IMAGING/OTHER DIAGNOSTIC TESTING: WBC 6.2, hemoglobin of 14.9, hematocrit of 43, platelet count of 241. Sodium of 141, chloride of 108, potassium of 4.8 , BUN of 17, creatinine of 0.9, magnesium was 1.8. Total protein 6.1. C- reactive protein less than 1. TSH 1.87. LDL was not checked. CT head without contrast again as per HPI. ASSESSMENT AND RECOMMENDATION: Mr. Clement Robison is a 69-year-old fairly healthy man who presented to [facility] today after he woke up with symptoms of persistent constant vertigo. On examination, the patient has a primary horizontal nystagmus towards the right on primary gaze. He has a negative head impulse test but a positive skew deviation as well as dysmetria to [id number] testing on the right lower extremity. These findings, in concomitant with the CT head finding of hypodensity in the right cerebellar hypodensity, are consistent with an ischemic stroke. However, the CT finding is extremely subtle and could represent artifact. Other differential diagnoses include peripheral vestibulopathy; however, that would not manifest with dysmetria and rarely we find skew deviation in these cases. Therefore, we should rule out and admit the patient for workup for stroke. 1. Suspect acute right cerebellar stroke. Etiology unknown. The patient has minimal to no risk factors other than age. NIH stroke scale is 1. He is not a candidate for IV tPA or mechanical thrombectomy as he manifests outside window and has minimal deficits. Recommendation: Admit the patient under the hospitalist service. Please obtain an MRI brain, MRA head and neck without contrast to rule out any possible vertebral artery dissection as well as to evaluate for right cerebellar stroke. Neuro checks every 4 hours. Allow permissive hypertension. Obtain a lipid panel. Start pravastatin 40 mg daily to see if he can tolerate the medication since he has got allergies to atorvastatin. Please consult PT/OT/ROLL FORMING SUPERVISOR to evaluate and treat. DVT prophylaxis with PCD and early ambulation. Anticoagulation therapy is not indicated. Please start the patient on aspirin 81 mg and Plavix 75 mg daily. We will perform stroke education following the MRI results. I will continue to follow. [id number]/[facility] #: [id number] IGLESIA
--- NOTE | 2019-07-01 14:16 | HP ---
CC: Dr. Addison Pink * HISTORY AND PHYSICAL: DATE OF ADMISSION: 07/01/19 PRIMARY CARE PROVIDER: Dr. Addison Pink. HEALTHCARE PROXY: Amberly, his , phone number [phone]. CODE STATUS: Full. CHIEF COMPLAINT: Intermittent dizziness for 3 days. HISTORY OF PRESENT ILLNESS: Mr. Robison is a healthy 69-year-old man who is presenting with intermittent morning dizziness over the last 3 days. He reports feeling dizziness upon waking up each morning. He denies lightheadedness. He reports feeling like the room is spinning the last 2 mornings, this has self- resolved; however, this morning upon waking the dizziness persisted even throughout his shower, so he presented to the emergency room. The patient reports that he has had chronic ringing in both of his ears due to occupational exposures. He also reports a posterior headache approximately 6-7/10 in severity over the last week. His reports that this morning after the dizziness persisted, she noted her looked peaked and paez and the patient reports that around that time he felt hot and sweaty, associated with some nausea; however, he denies vomiting, abdominal pain, constipation, diarrhea. The patient also denies visual changes, chest pain, shortness of breath, dysuria, new rash. The patient reports up until dizziness started, he felt like he had been doing well, is very active and has recently been hunting. The patient reports that moving from lying position to seated is what aggravates dizziness. PAST MEDICAL HISTORY: Occasional foot discoloration that may be Raynaud's, not on treatment. PAST SURGICAL HISTORY: 1. Hernia repair. 2. Polyp removed from larynx. HOME MEDICATIONS: Denies. ALLERGIES: ATORVASTATIN caused diffuse joint and muscular pain. FAMILY HISTORY: The patient's mother in her late 80s from complications from WATCHMAN procedure. The patient's father is healthy in his early 90s. The patient's daughter has AVM and has suffered a stroke complicated by right-sided hemiparesis. SOCIAL HISTORY: The patient lives with his , Amberly. 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 The patient denies a history of smoking or other drugs, but reports approximately 1 alcoholic beverage per month. His healthcare proxy is his . REVIEW OF SYSTEMS: A complete 10-point review of systems was performed and pertinent positives and negatives are listed in the HPI. PHYSICAL EXAMINATION GENERAL: He is a well-appearing man, in no acute distress, who is alert and interactive, very pleasant. VITAL SIGNS: Afebrile, heart rate 50s, blood pressure 147/97, respiratory rate 18, oxygen saturation 98% on room air. HEENT: With moist mucous membranes. OP clear. NECK: Supple. No JVD. LUNGS: Clear to auscultation bilaterally. HEART: Bradycardic. Regular rhythm. No murmurs, gallops, or rubs. ABDOMEN: Soft, nontender, nondistended. EXTREMITIES: Warm and well perfused without evidence of edema. NEURO: A and O x3. Bulk normal and symmetric. Persistent nystagmus when staring straight and when looking right. No facial droop or slurred speech. Sensation intact throughout. 5/5 strength in the upper extremities and left lower extremity. Hip flexion 4/5 on the right. Dysdiadochokinesia on the right lower extremity. DIAGNOSTIC STUDIES/LAB DATA: CBC, BMP, LFTs and urine all unremarkable. Lipids , A1c pending. TSH 1.81. B12 370. Brain CT: No acute intracranial abnormality. Periarticular calcification from the left TMJ similar from 2016. Periarticular dystrophic calcifications about the left TMJ similar to 2016. Chest x-ray: No evidence for acute intrathoracic disease. EKG with sinus bradycardia, rate 47 which is stable from prior EKG in 2016. ASSESSMENT AND PLAN: Mr. Robison is a 69-year-old healthy man who is presenting with subacute intermittent dizziness. His neuro exam is concerning for central process that caused vertigo. 1. Vertigo. Head CT not read as having acute stroke, although neuro consult is suspicious that patient may have had cerebellar stroke. The patient will be placed on telemetry and MRI of the brain, MRA and TTE with bubble studies have been ordered. Lipids and A1c are pending. Physical therapy and occupational therapy are ordered. The patient was given 324 mg of aspirin in the emergency room and will be continued on that daily. The patient was unable to tolerate atorvastatin in the past, but may consider trying rosuvastatin pending Neuro recommendations. 2. Bradycardia. This is chronic and asymptomatic. No further intervention needed. The patient will be placed on telemetry given possible recent stroke. 3. DVT prophylaxis: Initiate enoxaparin 40 mg subcu daily. 4. Code status: Full code. TIME SPENT: Approximately 60 minutes was spent on admission of this patient, more than half of which was spent at bedside for interview and exam. [id number]/[facility] #: [id number] IGLESIA
--- NOTE | 2019-07-01 16:02 | ECHO ---
*[facility]* [place] [address] Fax #: [phone] Transthoracic Echocardiogram Patient: Clement Robison : 1950 Study Date: 07/01/2019 Age: 69 Gender: M HR: 57 bpm Height: 71 in /180.3 cm BSA: 2.15 m^2 Weight: 208.6 lb /94.8 kg BMI: 29.1 kg/m^2 *Weed Eradicator: * April Jose RDCS RN *Referring Physician: * Jesus Burrell *Reading Physician: * Leonidas Mathis MD Indications: CVA. History: Hiatal hernia. Conclusions Summary: - Left ventricle: Systolic function is normal. The estimated ejection fraction is 60-65%. Wall motion is normal; there are no regional wall motion abnormalities. - Atrial septum: The atrial septum appears aneurysmal. A PFO is demonstrated by agitated saline contrast. The bubble study is positive, Images 14 and 15. - Mitral valve: There is trace regurgitation. - Aortic valve: There is no evidence of stenosis. There is trace regurgitation. - Tricuspid valve: There is trace regurgitation. - Pulmonary arteries: Systolic pressure can not be accurately estimated. - Compared to study of 11/12/07, the left ventricle function and valves are the same. Bubble study was not done on previous study. Study data: Transthoracic echocardiogram. Procedure: Transthoracic echocardiography was performed. Intravenous agitated saline was administered. A bubble study was performed on Images 14 and 15. Complete 2D, spectral Doppler, and color flow Doppler. Location: Emergency department. Patient status: Inpatient. Patient room number: ED 7. Rhythm: Bradycardia. PACs. Findings Left ventricle: The cavity size is normal. Wall thickness is mildly to moderately increased. Systolic function is normal. The estimated ejection fraction is 60-65%. Wall motion is normal; there are no regional wall motion abnormalities. There is no consistent Doppler evidence of clinically significant diastolic dysfunction. Right ventricle: The cavity size is normal. Systolic function is normal. Left atrium: The atrium is normal in size. Right atrium: The atrium is normal in size. Atrial septum: The atrial septum appears aneurysmal. A PFO is demonstrated by agitated saline contrast. The bubble study is positive, Images 14 and 15. Mitral valve: The leaflets are mildly thickened. There is no evidence of stenosis. There is trace regurgitation. Aortic valve: Not well visualized. The valve is probably trileaflet. The leaflets are mildly thickened. There is no evidence of stenosis. There is trace regurgitation. Tricuspid valve: The valve is structurally normal. There is no evidence of stenosis. There is trace regurgitation. Pulmonic valve: Not well visualized. There is trace regurgitation. Aorta: Aortic root: The aortic root is not dilated. Ascending aorta: The ascending aorta is mildly dilated at 3.8 cm. Aortic arch: The aortic arch is not dilated. Pericardium: There is no pericardial effusion. Pulmonary arteries: Not well visualized. Systolic pressure can not be accurately estimated. Systemic veins: Inferior vena cava: Not well visualized. Measurements Left ventricle Value Ref Aortic valve Value Ref TREVON, LAX 4.8 cm 4.2 - Nanci diam, ED 2.3 cm ---- 5.8 Peak v, S 1.52 m/sec ---- ESD, LAX 2.6 cm 2.5 - VTI, S 30.7 cm ---- 4.0 Mean grad, S 5.0 mm Hg ---- FS, LAX (H) 46 % 25 - 43 Peak grad, S 9.0 mm Hg ---- PW, ED (H) 1.1 cm 0.6 - LVOT/AV, VTI ratio 0.79 ---- 1.0 IVS/PW, ED 1.16 -------- Mitral valve Value Ref E', lat nanci, TDI (L) 8.8 cm/sec >=10.0 Peak E 0.85 m/sec --- - E/e', lat nanci, TDI 10 -------- Peak A 0.86 m/sec ---- E', med nanci, TDI 7.6 cm/sec >=7.0 Decel time 299 ms --- - E/e', med nanci, TDI 11 -------- Peak grad, D 2.9 mm Hg ---- E', avg, TDI 8.2 cm/sec -------- Peak E/A ratio 1 ---- E/e', avg, TDI 10 <=14 Pulmonic valve Value Ref LVOT Value Ref Peak v, S 0.86 m/sec ---- Peak marija, S 1.23 m/sec -------- Peak grad, S 3.0 mm Hg ---- VTI, S 24.3 cm -------- Peak grad, S 6 mm Hg -------- Aortic root Value Ref Mean grad, S 3 mm Hg -------- Root diam 3.4 cm <4.3 Ventricular septum Value Ref Ascending aorta Value Ref IVS, ED (H) 1.3 cm 0.6 - AAo AP diam, S 3.8 cm ---- 1.0 Aortic arch Value Ref Right ventricle Value Ref Arch diam 3.1 cm ---- TREVON minor ax, A4C 3.3 cm 1.9 - mid 3.5 Decending aorta Value Ref Zeina peak marija 0.81 m/sec ---- Left atrium Value Ref AP dim ED, LAX 3.7 cm -------- ML dim, A4C 4.5 cm -------- SI dim, A4C 4.8 cm -------- Vol/bsa, ES, 1-p 26 ml/m^2 12 - 37 A4C Vol/bsa, ES, A/L 28 ml/m^2 16 - 34 Right atrium Value Ref ML dim, ES, A4C 3.5 cm 2.6 - 4.4 SI dim, ES, A4C 4.5 cm 3.4 - 5.3 Legend: (L) and (H) petrona values outside specified reference range. Prepared and electronically signed by Leonidas Mathis MD 07/01/2019 16:01
[2019-07-01 17:47] LABS: Cholesterol 164 mg/dL; HDL Cholesterol 48.6 mg/dL; LDL Cholesterol 104 mg/dL; Triglycerides 58 mg/dL
--- NOTE | 2019-07-02 07:35 | PN ---
Subjective Date of Service: 07/02/19 Interval History: MRA yesterday with suggestion of stenosis at the origin of the L ICA. MRI Brain without lesion. TTE with PFO. No acute events overnight. Pt expresses reluctance to take statin. Him and his are suspicion. Time spent discussing indications for statin and role in preventing further ischemic disease. They would like to think about it and are amenable to prescription being sent to pharmacy, but would prefer to continue doing their own research. Objective Active Medications: Acetaminophen (Tylenol Tab*) 975 mg PO Q8H PRN PRN Reason: Pain - Mild to Moderate Aspirin (Aspirin 81 Mg Chew Tab*) 81 mg PO DAILY [facility] Last Admin: 07/02/19 08:33 Dose: 81 mg Clopidogrel Bisulfate (Plavix Tab*) 75 mg PO DAILY [facility] Last Admin: 07/02/19 11:30 Dose: 75 mg Enoxaparin Sodium (Lovenox(*)) 40 mg SUBCUT Q24H [facility] Last Admin: 07/01/19 17:52 Dose: 40 mg Pravastatin Sodium (Pravachol (Nf)) 40 mg PO 0800 [facility] Last Admin: 07/02/19 08:35 Dose: Not Given Vital Signs - 8 hr 07/02/19 03:36 Temperature 98.3 F Pulse Rate 46 Respiratory 18 Rate Blood Pressure 118/74 (mmHg) O2 Sat by Pulse 95 Oximetry Oxygen Devices in Use Now: None Appearance: well appearing man in NAD, alert and interactive Ears/Nose/Mouth/Throat: Clear Oropharnyx, Mucous Membranes Moist Neck: NL Appearance and Movements; NL JVP, Trachea Midline Respiratory: Symmetrical Chest Expansion and Respiratory Effort, Clear to Auscultation Cardiovascular: NL Sounds; No Murmurs; No JVD, RRR Abdominal: NL Sounds; No Tenderness; No Distention, No Hepatosplenomegaly Extremities: No Edema Skin: No Rash or Ulcers Neurological: Alert and Oriented x 3, NL Sensation, NL Gait, NL Muscle Strength and Tone Result Diagrams: 07/01/19 10:04 07/01/19 10:04 Assess/Plan/Problems-Billing Assessment: 69M, previously healthy, presents with vertigo and gait instability concerning for TIA, as symptoms have now resolved. Pt to return home after lower extremity dopplers performed. It is recommended he take DAPT and statin. Appreciate Neuro note and recommendations.
[2019-07-02] MEDS ORDERED: CMCS - Pravastatin (NF) 20 MG TAB PO SCH (08:00)
[2019-07-02] MEDS: Clopidogrel TAB* 75 MG PO SCH ×2 (08:33→11:30)
[2019-07-02] MEDS ORDERED: Aspirin 81 mg CHEW TAB* 81 MG TAB.CHEW PO SCH (09:00)
--- NOTE | 2019-07-02 09:15 | PN ---
Subjective Date of Service: 07/02/19 Length of Stay: 1 Days Neurology is following for suspected TIA. Interval History: He had resolution of his symptoms this morning. He has been up and ambulating. He walked to the bathroom a few times without any symptoms. He denied any vertigo, tinnitus, hearing loss, headaches, lightheadedness, weakness or paresthesia. The right leg weakness and dysmetria resolved last night. Labs, imaging, and other diagnostic testing: LDL: 104 and Cholesterol 164 2D TTE: EF 60-65%. PFO is present. CT head without contrast 07/01/2019: no acute stroke. Artifact in the right cerebellum. MRI brain without contrast 07/01/2019: no acute stroke, mass lesions, or demyelinating disease. MRA head and neck 07/01/2019: left ICA stenosis of about 50%. No intracranial stenosis noted. Review of Systems: Denied CP, SOB, or palpitations. Objective Active Medications: Acetaminophen (Tylenol Tab*) 975 mg PO Q8H PRN PRN Reason: Pain - Mild to Moderate Aspirin (Aspirin 81 Mg Chew Tab*) 81 mg PO DAILY [facility] Last Admin: 07/02/19 08:33 Dose: 81 mg Clopidogrel Bisulfate (Plavix Tab*) 75 mg PO DAILY [facility] Last Admin: 07/02/19 08:33 Dose: Not Given Enoxaparin Sodium (Lovenox(*)) 40 mg SUBCUT Q24H [facility] Last Admin: 07/01/19 17:52 Dose: 40 mg Pravastatin Sodium (Pravachol (Nf)) 40 mg PO 0800 [facility] Last Admin: 07/02/19 08:35 Dose: Not Given Vital Signs 07/01/19 07/01/19 07/01/19 09:21 10:00 10:22 Temperature Pulse Rate 48 Respiratory 9 6 Rate Blood Pressure 138/86 158/89 (mmHg) O2 Sat by Pulse 96 Oximetry 07/01/19 07/01/19 07/01/19 10:52 11:00 11:37 Temperature Pulse Rate 52 54 Respiratory 5 8 12 Rate Blood Pressure 145/78 145/86 (mmHg) O2 Sat by Pulse 97 98 Oximetry 07/01/19 07/01/19 07/01/19 11:38 11:40 11:41 Temperature Pulse Rate 61 53 53 Respiratory 15 10 Rate Blood Pressure 154/88 147/97 147/97 (mmHg) O2 Sat by Pulse 97 99 Oximetry 07/01/19 07/01/19 07/01/19 11:51 12:00 12:21 Temperature Pulse Rate 48 45 44 Respiratory 15 0 4 Rate Blood Pressure 130/89 129/82 (mmHg) O2 Sat by Pulse 96 96 97 Oximetry 07/01/19 07/01/19 07/01/19 12:51 13:00 13:21 Temperature Pulse Rate 43 43 47 Respiratory 11 8 5 Rate Blood Pressure 129/81 134/89 (mmHg) O2 Sat by Pulse 96 97 96 Oximetry 07/01/19 07/01/19 07/01/19 13:51 14:00 14:22 Temperature Pulse Rate 45 45 54 Respiratory 3 14 14 Rate Blood Pressure 125/74 146/78 (mmHg) O2 Sat by Pulse 98 96 95 Oximetry 07/01/19 07/01/19 07/01/19 14:52 15:00 15:20 Temperature 97.7 F Pulse Rate 58 61 45 Respiratory 10 19 16 Rate Blood Pressure 131/80 123/71 (mmHg) O2 Sat by Pulse 97 97 97 Oximetry 07/01/19 07/01/19 07/01/19 15:22 20:00 21:45 Temperature 98.1 F 97.7 F Pulse Rate 56 50 Respiratory 12 18 18 Rate Blood Pressure 125/74 110/63 (mmHg) O2 Sat by Pulse 97 98 Oximetry 07/01/19 07/02/19 07/02/19 23:15 03:36 07:47 Temperature 98.4 F 98.3 F 97.8 F Pulse Rate 56 46 45 Respiratory 18 18 20 Rate Blood Pressure 116/82 118/74 123/82 (mmHg) O2 Sat by Pulse 96 95 94 Oximetry Intake and Output Last 24 Hours 06/30/19 07/01/19 07/02/19 07/03/19 06:59 06:59 06:59 06:59 Intake Total 1360 Balance 1360 Weight 209 lb Intake: IV Fluids 1000 Oral 360 Oxygen Devices in Use Now: None Neurology Exam: General: Well nourished, well developed, and in no acute distress HEENT: Normocephelic/atraumatic, sclera anicteric, mucous membranes moist Neck: Supple Chest: Clear to auscultation bilaterally Cardiovascular: Regular rate and rhythm without murmurs, rubs, gallops Abdomen: Soft, non-tender/non-distended Extremities: No clubbing, cyanosis, or edema Neurological Findings: Awake, alert, and oriented to person, place, and time. Speech: fluent without dysarthria, repetition intact Cranial Nerve: PERRL, EOM intact, VFF, no nystagmus, face symmetric bilaterally , facial sensation intact, hearing intact to finger rub bilaterally, palate elevates symmetrically, tongue midline, SCM and Trapezius s/s. Motor: s/s throughout, proximal and distal extremities x4 tone/bulk normal Sensation: intact to LT/PP bilaterally upper and lower extremities Deep Tendon Reflex: 2+ symmetric in the upper/lower extremities, Babinski - down going Finger to nose, rapid alternating movements intact without tremor, no dysdiadochokinesia Gait: intact with good arm swing and stride Result Diagrams: 07/01/19 10:04 07/01/19 10:04 Assessment/Plan Mr. Clement Robison is a 69-year-old man who presented with acute vertigo and ataxia. The patient's examination showed horizontal nystagmus to primary gaze that exacerbated when looking towards the right, weakness to hip flexion on the right, and heal to mistry dysmetria on the left. The CT head showed some hypodensity in the medial right cerebellum that is artifact related because the MRI brain was negative for stroke. 1. Suspect TIA to the right superior cerebellar artery. The patient's symptoms resolved within 24 hours. MRI brain is negative for acute stroke. The clinical findings yesterday were consistent with a central vertigo associated with focal neurological deficits of dysmetria and mild weakness. These symptoms have resolved today. NIHSS: 0. mRS: 0. Recommendations: - No need for PT/OT/SUTURE POLISHER evaluation since he is asymptomatic without any gait abnormality, speech problems, or fine motor deficits. - Continue aspirin 81 mg and Plavix 75 mg daily for 21 days. Discontinue Plavix on July 22. - Continue Pravastatin 40 mg nightly. He had some intolerance to statin therapy in the past so we opted to start him on a loewr dose of pravastatin. - Primary stroke prevention is maximized. TIA education provided. 2. Asymptomatic left ICA stenosis. Recommendations: - Antiplatelet and statin therapies. 3. PFO. Ordered duplex of the LE to check for DVTs before discharge. Since he did not have a stroke, and he was not on aspirin therapy recently, we opted to continue conservative management with anti-platelet therapy. If he fails anti- platelet therapy and has recurrent TIA or new stroke, then he would need to see a nurse practitioner per diem to discuss PFO closure. Follow-up with neurology in 6-8 weeks. I will arrange for a follow-up appointment. I discussed these results with the patient and Mrs. Robison in details. Time spent: 35 minutes educating them regarding TIAs and discussing symptoms of stroke. He was advised to come to the ER immediately if he has any stroke like symptoms.
--- NOTE | 2019-07-02 13:50 | DS ---
CC: Dr. Addison Pink * DISCHARGE SUMMARY: DATE OF ADMISSION: 07/01/19 DATE OF DISCHARGE: 07/02/19 PRIMARY CARE PROVIDER: Dr. Addison Pink. PRIMARY DIAGNOSES: 1. Transient ischemic attack. 2. Asymptomatic left internal carotid artery stenosis. 3. Patent foramen ovale. SECONDARY DIAGNOSES: 1. Overweight. 2. Possible Raynaud's syndrome. CONSULTATION: Dr. Burrell of Neurology. DISCHARGE MEDICATIONS: 1. Aspirin 81 mg daily. 2. Plavix 75 mg for 21 days. 3. Pravastatin 40 mg at bedtime. HISTORY OF PRESENT ILLNESS: Mr. Robison is a healthy 69-year-old man who is left handed, who is presenting with intermittent morning dizziness over the last 3 days. He reports that this dizziness occurred upon waking each morning and would usually self-resolve. He felt like the room was spinning. On the morning of presentation, when he woke up the dizziness did not self-resolve, it was persistent even throughout his shower, so he decided to present to the emergency room. The patient reports he has chronic ringing in both of his ears due to occupational exposure. He also reports a posterior headache for the last week that is about 6-7/10 in severity. reports that after dizziness episode persisted this morning, she noted that her looked paez. The patient reports that around that time he felt hot and sweaty with some nausea; however, the patient denies vomiting, abdominal pain, constipation, diarrhea. Also denies visual changes, chest pain, shortness of breath, dysuria, new rash. The patient reports that up until the dizziness started he felt like he had been doing well, was very active and had recently been hunting. The patient reports that moving from lying position to seated is what aggravates the dizziness. He also feels unsteady when ambulating as though he will fall to the side. HOSPITAL COURSE: In the emergency room, Dr. Burrell of Neurology was consulted and the patient had an NIH Stroke Scale of 1 for dysmetria, [id number] on the right lower extremity. The patient was not a tPA candidate as he presented outside of the therapeutic window. A CT head without contrast was read as normal; however, there was a hypodensity noted in the right cerebellum, which could be artifact. It was recommended that the patient be admitted to the medical service to monitor on telemetry, get TTE and MRI/MRA. Both studies were significant for a suggestion of stenosis in the origin of the left ICA which may be greater than 50%. The patient also had a PFO demonstrated on TTE. His brain MRI was without stroke and by the next morning, the patient denied all symptoms and felt back to his baseline. Of note, in the emergency room, he was loaded with aspirin 324. The patient was also ordered for aspirin and statin and internal medicine and neurology teams extensively discussed with the patient the importance of taking dual antiplatelets with statin given recent likely ischemic event; however, the patient did express a lot of suspicion over pharmacologic therapies. He did report that he took aspirin in the past for 5 years and recently stopped it and he would be amenable to taking that. Given short course recommended for Plavix, he did seem amenable taking Plavix for 21 days; however, the patient was very reluctant to take pravastatin and refused the dose that was brought to him during this hospitalization. This was again discussed with him the next day and the patient states that he is amenable to prescription being sent to his pharmacy, but he would rather have more time to continue reading about statins and thinking about them, although he says he is "very suspicious." DIAGNOSTIC STUDIES/LAB DATA: CBC, BMP, and LFTs were unremarkable. Hemoglobin A1c 5.2%. Vitamin B12 of 370. TSH 1.87. LDL 104, HDL 48, triglycerides 58. Brain CT without acute intracranial abnormality. Periarticular calcifications from the left TMJ similar from 2016. Periarticular dystrophic calcifications about the left TMJ similar to 2016, although this is favored to be customer service representative teacher of a benign tumoral calcinosis. MRA neck with suggestion of stenosis at the origin of the left ICA, which may be greater than 50%. Head MRA with no branch occlusion. No aneurysmal dilatation is noted. [place] is grossly unremarkable. Brain MRI without intracranial lesion noted. Transthoracic echocardiogram with LV systolic function normal with EF 60% to 65 % and normal wall motion. Atrial septum appears aneurysmal. A PFO is demonstrated by agitated saline contrast. Mitral valve with trace regurgitation. Aortic valve: No evidence of stenosis. Compared to study from November 2007, the left ventricular function and valves are the same. Bubble study was not done on previous study. Venous Doppler studies negative for DVT. DISCHARGE PLAN: The patient will be discharged to follow up with his primary care physician and outpatient neurology. He was previously on no home medications, but now it is recommended that he take dual antiplatelets as well as a statin. The patient appears amenable to taking aspirin indefinitely as well as a 21-day course of Plavix; however, he is still very reluctant to take the statin, although he is amenable to having prescription sent to his pharmacy and would like more time to think about this and talk about it with his primary care physician. He was strongly encouraged to take statin not just for cholesterol-lowering effects, but for other reasons and for further prevention of ischemic events. The patient is aware of reasons for our recommendations. He and his were educated on return precautions, which include, but are not limited to recurrence of focal neurologic symptoms. He should eat a healthy diet low in processed foods and maintain a healthy exercise regimen to promote health. DISPOSITION: To home. CONDITION: Improved. TIME SPENT: Approximately 60 minutes was spent on discharge of this patient, more than half of which was spent with care coordination at bedside for interview and exam. [id number]/[facility] #: [id number] [place]
[2019-07-02 14:15] VITALS: BP 115/76
== END 2019-07-02 14:55 | disposition home or self-care (01) ==
LOC: ED 08:52 → MEDTELE 12:12
PROVIDERS: ADMIT Internal Medicine; ATTEND Internal Medicine
DX: G45.9 Transient cerebral ischemic attack, unspecified (principal); I65.22 Occlusion and stenosis of left carotid artery; Q21.1 Atrial septal defect; E66.3 Overweight; K21.9 Gastro-esophageal reflux disease without esophagitis; R00.1 Bradycardia, unspecified; R42 Dizziness and giddiness; Z79.82 Long term (current) use of aspirin; Z79.899 Other long term (current) drug therapy
CPT/HCPCS: 36415; 70450; 70544; 70547; 70551; 71046; 80053; 80061; 81003; 82607; 83036; 83605; 83735; 83880; 84443; 84484; 85025; 86140; 93005; 93306; 93970; 96360; 96372; 99284; A9270-GY; G0378; J1650